=== PATIENT | male | born 1955 | race Caucasian/White ===

== ENCOUNTER 2018-12-01 11:47 | Emergency (ER) | payer BC ==
[2018-12-01] MEDS ORDERED: LIDOCAINE 1% MPF 30 ML VIAL ONE (12:40)
--- NOTE | 2018-12-01 13:01 | RAD REPORT ---
EXAM DESCRIPTION: RAD - Hand Right 3 View - 12/01/2018 12:48 pm CLINICAL HISTORY: Soft tissue wound, table saw injury right thumb COMPARISON: None. FINDINGS: No acute fracture changes are present. A small oval bone density is present at the ventral margin of the thumb IP joint. This is typical appearance for an accessory ossicle. There is a small triangular shaped bone density along the dorsal margin of the thumb IP joint. This is corticated abena g the margins. No defect or donor site in either phalanx. This small bony density is not believed to be related to the acute injury. There is no dislocation or periosteal reaction noted. No foreign bod y identified. Air density is seen in the dorsal soft tissues near the first MCP joint. This is in close proximity t o the joint space. No bone defect seen. IMPRESSION: No acute bone or joint finding identifiable in the right hand. Air density indicating soft tissue wound near the dorsal margin of the first MCP joint. This is in cl ose proximity to the joint and joint capsule disruption cannot be excluded.
--- NOTE | 2018-12-01 13:52 | EDPHYS ---
Physician Documentation [facility] Name: Poli Uribe II Age: 63 yrs Sex: Male : 1955 Arrival Date: 12/01/2018 Time: 11:50 Bed 14 Private MD: Juma Morris ED Physician Devon Aiken HPI: 12/01 14:12 This 63 yrs old Male presents to ER via Ambulatory with complaints of snw Laceration. 14:12 Onset: The symptoms/episode began/occurred suddenly, just prior to arrival. The patient snw has not experienced similar symptoms in the past. It is unknown whether or not the patient has recently seen a physician. Historical: - Allergies: 11:54 No Known Allergies; ch - Home Meds: :54 None [Active]; ch - PMHx: :54 None; ch - PSHx: 11:54 None; ch - Immunization history:: Adult Immunizations up to date, Last tetanus immunization: up to date < 5 years ago. - Social history:: Smoking status: Patient/guardian denies using tobacco, Patient/guardian denies using alcohol, street drugs. - Ebola Screening: : Patient negative for fever greater than or equal to 101.5 degrees Fahrenheit, and additional compatible Ebola Virus Disease symptoms Patient denies exposure to infectious person Patient denies travel to an Ebola-affected area in the 21 days before illness onset No symptoms or risks identified at this time. ROS: 14:10 Constitutional: Negative for fever, chills, and weight loss, Eyes: Negative for injury, snw pain, redness, and discharge, ENT: Negative for injury, pain, and discharge, Neck: Negative for injury, pain, and swelling, Cardiovascular: Negative for chest pain, palpitations, and edema, Respiratory: Negative for shortness of breath, cough, wheezing, and pleuritic chest pain, Abdomen/GI: Negative for abdominal pain, nausea, vomiting, diarrhea, and constipation, Back: Negative for injury and pain, : Negative for injury, bleeding, discharge, and swelling, MS/Extremity: Negative for injury and deformity, Neuro: Negative for headache, weakness, numbness, tingling, and seizure, Psych: Negative for depression, anxiety, suicide ideation, homicidal ideation, and hallucinations. 14:10 Skin: Positive for laceration(s), of the dorsal aspect of proximal phalanx of right thumb. Exam: 14:13 Constitutional: This is a well developed, well nourished patient who is awake, alert, snw and in no acute distress. Head/Face: Normocephalic, atraumatic. Eyes: Pupils equal round and reactive to light, extra-ocular motions intact. Lids and lashes normal. Conjunctiva and sclera are non-icteric and not injected. Cornea within normal limits. Periorbital areas with no swelling, redness, or edema. ENT: Nares patent. No nasal discharge, no septal abnormalities noted. Tympanic membranes are normal and external auditory canals are clear. Oropharynx with no redness, swelling, or masses, exudates, or evidence of obstruction, uvula midline. Mucous membranes moist. Neck: Trachea midline, no thyromegaly or masses palpated, and no cervical lymphadenopathy. Supple, full range of motion without nuchal rigidity, or vertebral point tenderness. No Meningismus. Chest/axilla: Normal chest wall appearance and motion. Nontender with no deformity. No lesions are appreciated. Cardiovascular: Regular rate and rhythm with a normal S1 and S2. No gallops, murmurs, or rubs. Normal PMI, no JVD. No pulse deficits. Respiratory: Lungs have equal breath sounds bilaterally, clear to auscultation and percussion. No rales, rhonchi or wheezes noted. No increased work of breathing, no retractions or nasal flaring. Abdomen/GI: Soft, non-tender, with normal bowel sounds. No distension or tympany. No guarding or rebound. No evidence of tenderness throughout. Back: No spinal tenderness. No costovertebral tenderness. Full range of motion. Neuro: Awake and alert, GCS 15, oriented to person, place, time, and situation. Cranial nerves II-XII grossly intact. Motor strength 5/5 in all extremities. Sensory grossly intact. Cerebellar exam normal. Normal gait. Psych: Awake, alert, with orientation to person, place and time. Behavior, mood, and affect are within normal limits. 14:13 Skin: Appearance: normal except for affected area, injury, laceration(s), the wound is approximately 1 cm(s), with a depth of 1 cm(s), of the dorsal aspect of proximal phalanx of right thumb, area of fascia disruption, no visible tendon injury or disruption of ROM, some muscle tissue exudes from center of laceration with flexion of thumb. Area closed with 1 4-0 chromic suture post anesthesia and copious irrigation.. Vital Signs: 11:54 BP 168 / 89; Pulse 98; Resp 20; Temp 97.9; Pulse Ox 99% on R/A; Weight 77.11 kg; Height ch 5 ft. 11 in. (180.34 cm); Pain 2/10; 12:54 BP 150 / 93; Pulse 66; Resp 18; Pulse Ox 99% on R/A; Pain 0/10; rb1 13:33 BP 152 / 95; Pulse 67; Resp 17; Pulse Ox 100% on R/A; rb1 14:15 BP 150 / 92; Pulse 68; Resp 17; Pulse Ox 100% on R/A; Pain 0/10; rb1 11:54 Body Mass Index 23.71 (77.11 kg, 180.34 cm) ch Laceration: 13:49 Wound Repair of 1cm ( 0.4in ) subcutaneous laceration to dorsal aspect of proximal snw phalanx of right thumb. Irregularly shaped.. Skin/tissue flap noted.. Distal neuro/vascular/tendon intact. Anesthesia: Wound infiltrated with 7 mls of 1% lidocaine. Wound prep: Copious irrigation. Skin closed with 1 4-0 chromic using simple sutures and sterile technique. Dressed with 4x4's, non-adherent dressing. Patient tolerated well. MDM: 12:01 Patient medically screened. snw 14:12 Data reviewed: vital signs, nurses notes. Data interpreted: Pulse oximetry: on room air snw is 100 %. Interpretation: normal. Counseling: I had a detailed discussion with the patient and/or guardian regarding: the historical points, exam findings, and any diagnostic results supporting the discharge/admit diagnosis, the presence of at least one elevated blood pressure reading (>120/80) during this emergency department visit, radiology results, the need for outpatient follow up, to return to the emergency department if symptoms worsen or persist or if there are any questions or concerns that arise at home. Special discussion: I have referred the patient to see his PCP for further evaluation of high blood pressure. Based on the history and exam findings, there is no indication for further emergent testing or inpatient evaluation. I discussed with the patient/guardian the need to see the hand specialist for further evaluation of the symptoms. I discussed with the patient/guardian the need to see the primary care provider for further evaluation of the symptoms. 12/01 12:21 Order name: Hand Right 3 View XRAY; Complete Time: 13:52 snw 12/01 12:21 Order name: Wound Care; Complete Time: 14:04 snw 12/01 12:21 Order name: Suture Tray at Bedside; Complete Time: 13:08 snw 12/01 12:21 Order name: Misc. Order: 2L NS for wound irrigation; Complete Time: 13:08 snw 12/01 13:53 Order name: Thumb Spica Splint; Complete Time: 14:17 snw 12/01 13:53 Order name: Wound dressing; Complete Time: 14:04 snw Administered Medications: 12:50 Drug: Lidocaine (1 %) 1 vials Volume: 20 ml; Route: Infiltration; rb1 Disposition: 12/02 07:20 Co-signature as Attending Physician, Devon Aiken MD I agree with the assessment and kdr plan of care. Disposition: 12/01/18 13:51 Discharged to Home. Impression: Laceration with foreign body of right thumb without damage to nail. - Condition is Stable. - Discharge Instructions: Cast or Splint Care, Adult, Laceration Care, Adult, Sutured Wound Care, Wound Infection. - Prescriptions for Keflex 500 mg Oral Capsule - take 1 capsule by ORAL route every 8 hours for 10 days; 30 capsule. Tylenol- Codeine #3 300-30 mg Oral Tablet - take 2 tablets by ORAL route every 6 hours As needed; 20 tablet. - Work release form, Medication Reconciliation Form, Thank You Letter, Antibiotic Education, Prescription Opioid Use form. - Follow up: Juma Morris MD; When: 2 - 3 days; Reason: Recheck today's complaints, Continuance of care, Re-evaluation by your physician. Follow up: Emergency Department; When: As needed; Reason: Worsening of condition. Signatures: Dispatcher [employer] Nida Salamanca, RN RN Devon Hinds MD MD [facility] Romelia Dong, REGENERATOR OPERATOR-C REGENERATOR OPERATOR-[facility] Gertrude Arriaga, RN RN rb1 Corrections: (The following items were deleted from the chart) 12/01 14:25 13:51 12/01/2018 13:51 Discharged to Home. Impression: Laceration with foreign body of rb1 right thumb without damage to nail. Condition is Stable. Forms are Medication Reconciliation Form, Thank You Letter, Antibiotic Education, Prescription Opioid Use. Follow up: Juma Morris; When: 2 - 3 days; Reason: Recheck today's complaints, Continuance of care, Re-evaluation by your physician. Follow up: Emergency Department; When: As needed; Reason: Worsening of condition. snconchita
--- NOTE | 2018-12-01 13:52 | ER ---
Nurse's Notes [facility] Name: Poli Uribe II Age: 63 yrs Sex: Male : 1955 Arrival Date: 12/01/2018 Time: 11:50 Bed 14 Private MD: Juma Morris Diagnosis: Laceration with foreign body of right thumb without damage to nail Presentation: 12/01 11:53 Presenting complaint: Patient states: nicked my R thumb joint on a table saw approx 1 ch hr ferry [place]. Transition of care: patient was not received from another setting of care. Complicating Factors: There are no complicating factors for this patient. Onset of symptoms was December 01, 2018 at 11:00. Risk Assessment: Do you want to hurt yourself or someone else? Patient reports no desire to harm self or others. Initial Sepsis Screen: Does the patient meet any 2 criteria? No. Patient's initial sepsis screen is negative. Does the patient have a suspected source of infection? No. Patient's initial sepsis screen is negative. Care prior to arrival: None. 11:53 Method Of Arrival: Ambulatory 11:53 Acuity: EVIN 4 Triage Assessment: 11:54 General: Appears in no apparent distress. comfortable, well groomed, Behavior is ch anxious, restless. Pain: Complains of pain in dorsal aspect of proximal phalanx of right thumb and Right first web space Pain currently is 2 out of 10 on a pain scale. Injury Description: Laceration sustained to right hand is jagged, 2.6 to 7.5 cm long, not bleeding, was sustained 30-60 minutes ago. is bleeding moderately. Historical: - Allergies: 11:54 No Known Allergies; - Home Meds: 11:54 None [Active]; ch - PMHx: 11:54 None; ch - PSHx: 11:54 None; - Immunization history:: Adult Immunizations up to date, Last tetanus immunization: up to date < 5 years ago. - Social history:: Smoking status: Patient/guardian denies using tobacco, Patient/guardian denies using alcohol, street drugs. - Ebola Screening: : Patient negative for fever greater than or equal to 101.5 degrees Fahrenheit, and additional compatible Ebola Virus Disease symptoms Patient denies exposure to infectious person Patient denies travel to an Ebola-affected area in the 21 days before illness onset No symptoms or risks identified at this time. Screenin:00 Abuse screen: Denies threats or abuse. Nutritional screening: No deficits noted. rb1 Tuberculosis screening: No symptoms or risk factors identified. Fall Risk None identified. Assessment: 12:00 General: Appears in no apparent distress. comfortable, Behavior is calm, cooperative. rb1 Pain: Complains of pain in right thumb Pain currently is 2 out of 10 on a pain scale. Neuro: Level of Consciousness is awake, alert, obeys commands, Oriented to person, place, time, situation. Cardiovascular: Capillary refill < 3 seconds is brisk in bilateral fingers. Respiratory: Airway is patent Respiratory effort is even, unlabored, Respiratory pattern is regular, symmetrical. GI: No signs and/or symptoms were reported involving the gastrointestinal system. : No signs and/or symptoms were reported regarding the genitourinary system. Derm: Skin is pink, warm \T\ dry. Musculoskeletal: Range of motion: intact in all extremities. Injury Description: Laceration sustained to right thumb is contaminated, was sustained 30-60 minutes ago. is bleeding a small amount. 13:00 Reassessment: Patient appears in no apparent distress at this time. Provider at bedside.rb1 14:00 Reassessment: Patient appears in no apparent distress at this time. Patient and/or rb1 family updated on plan of care and expected duration. Pain level reassessed. Patient is alert, oriented x 3, equal unlabored respirations, skin warm/dry/pink. Patient denies pain at this time. Vital Signs: 11:54 BP 168 / 89; Pulse 98; Resp 20; Temp 97.9; Pulse Ox 99% on R/A; Weight 77.11 kg; Height 5 ft. 11 in. (180.34 cm); Pain 2/10; 12:54 BP 150 / 93; Pulse 66; Resp 18; Pulse Ox 99% on R/A; Pain 0/10; rb1 13:33 BP 152 / 95; Pulse 67; Resp 17; Pulse Ox 100% on R/A; rb1 14:15 BP 150 / 92; Pulse 68; Resp 17; Pulse Ox 100% on R/A; Pain 0/10; rb1 11:54 Body Mass Index 23.71 (77.11 kg, 180.34 cm) ED Course: 11:50 Patient arrived in ED. sb2 11:50 Juma Morris MD is Private Physician. sb2 11:53 Triage completed. ch 11:54 Arm band placed on left wrist. Patient placed in an exam room, on a stretcher. ch 12:01 [facility] snw 12:01 Devon Aiken MD is Attending Physician. snw 12:25 Gertrude Arriaga, RN is Primary Nurse. rb1 12:48 Hand Right 3 View XRAY In Process Unspecified. EDMS 13:51 Juma Morris MD is Referral Physician. snw 14:05 Dressings: non-adherent dressing x 2 right hand and Right first web space and dorsal mh5 aspect of proximal phalanx of right thumb. Wound care: to laceration. 14:06 Patient has correct armband on for positive identification. Pulse ox on. NIBP on. mh5 14:17 right spica Velcro splint. mh5 14:25 No provider procedures requiring assistance completed. Patient did not have IV access rb1 during this emergency room visit. Administered Medications: 12:50 Drug: Lidocaine (1 %) 1 vials Volume: 20 ml; Route: Infiltration; rb1 Outcome: 13:51 Discharge ordered by MD. snw 14:25 Patient left the ED. rb1 14:25 Discharged to home ambulatory. rb1 14:25 Condition: stable 14:25 Discharge instructions given to patient, Instructed on discharge instructions, follow up and referral plans. medication usage, Demonstrated understanding of instructions, follow-up care, medications, Prescriptions given X 2. Signatures: Dispatcher [employer] EDRI Nida Peter, RN RN Romelia Dong FNP-C [facility] Gertrude Arriaga, RN RN rb1 Sandra Roach [facility] Kaykay Zelaya sb2
== END 2018-12-01 14:25 | disposition home or self-care (01) ==
LOC: ER 11:47
PROC: 0JQJ0ZZ Repair Right Hand Subcutaneous Tissue and Fascia, Open Approach (ICD-10-PCS; principal; 2018-12-01)
DX: S61.011A Laceration without foreign body of right thumb without damage to nail, initial encounter (principal); W29.8XXA Contact with other powered hand tools and household machinery, initial encounter; Y93.9 Activity, unspecified; Y92.9 Unspecified place or not applicable
CPT/HCPCS: 99284

== ENCOUNTER 2023-07-15 01:13 | Emergency (ER) | payer OTHER, BC ==
--- OUTSIDE RECORDS SUMMARY | 2023-07-15 01:19 | XMS REPORT | Continuity of Care Document ---
:1955 Author Organization [facility] t Address [address] [place] [address] Care Team Providers Name Role Phone Alexandra JONES, Juma Condon Primary Care Physician Samira JONES, Jens George Attending Clinician Heriberto JONES, Terry Hwang Attending Clinician Eddie Romero WIG MAKER, Barbie Matthews Attending Clinician Rony Attending Clinician Unavailable LUCA OSCAR Attending Clinician Unavailable MD JENS HOGAN Attending Clinician Unavailable Vega Serrano MD Attending Clinician JENS HOGAN Admitting Clinician Unavailable Rony Admitting Clinician Unavailable MD JENS HOGAN Admitting Clinician Unavailable Payers Payer Name Policy Type Policy Number Effective Date Expiration Date S [place] [id number] 2019 [place] 00:[place] [id number] [place] [id number] 2019 [place] 00:00:00 SUPPLEMENT) Problems Condition Condition Condition Status Onset Resolution Last Treating Co mments Source Name Details Category Date Date Treatment Clinician Date Male 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 Social History Social Habit Start Date Stop Date Quantity Comments Source History of tobacco Chews Tobacco [facility] Alcohol intake 2023-07-14 2023-07-14 Lifetime [facility] 00:00:00 00:00:00 non-drinker Hospital (finding) History of Social 2023-07-14 2023-07-[address] function 00:00:00 00:00:00 Hospital Cigarette 2023-06-29 2023-06-29 [facility] pack-[facility] 00:[facility]00 00:00:00 Hospital Tobacco use and 2023-06-29 2023-06-29 Former smokeless [facility] exposure 00:00:00 00:00:00 tobacco user [facility] Tobacco Comment 2023-06-29 2023-06-29 quit 11 years [facility] 00:00:00 00:00:00 ago / smoke less Hospital / smoking tobacco Cigarettes smoked 2023-06-29 2023-06-[address] current (pack per 00:00:00 00:00:00 Hospita l day) - Reported Sex Ass[birth year] At [birth year] [facility] 00:00:00 00:00:00 Hospital Smoking Status Start Date Stop Date Source Ex-smoker 2023-06-29 00:00:00 2023-06-[facility] Medications Ordered Filled Start Stop Current Ordering Indication Dosage Frequency Signature Comments Components Source Medication Medication Date Date Medication? Clinician (SIG) Name Name amLODIPine Yes 10mg QD Take 1 Metho di (NORVASC) 8-16 tablet (10 st 10 mg 18:58: mg total) Hospita tablet 35 by mouth l nightly. losartan Yes 100mg QD Take 2 Method i (COZAAR) 50 8-[address] MG tablet 18:58: (100 mg Hospi ta 35 total) by l mouth every morning. multivitami Yes 1{tbl} QD Take 1 Me thodi n 8-[address] (THERAGRAN) 18:58: mouth Hospi ta tablet 35 daily. l zinc 2022-0 Yes 1{capsu QD Take 1 [facility] sulfate 8-16 le} capsule by st (ZINCATE) 18:58: mouth Hospita 50 mg zinc 35 daily. l (220 mg) capsule cholecalcif 2022-0 Yes 2000U QD Take 2 Met [facility]odi sapp[place], 8-[address] vitamin D3, 18:58: (2,000 Hosp luis alberto 1,000 unit 35 Units l tablet total) by mouth daily. cetirizine 2022-0 Yes 10mg QD Take 1 Metho di (ZyrTEC) 10 -16 tablet (10 st MG tablet 18:58: mg total) Hos mady 35 by mouth l nightly. famotidine 2022-0 Yes 20mg QD Take 1 Metho di (PEPCID) 20 8-16 tablet (20 st MG tablet 18:58: mg total) Hos mady 35 by mouth l every morning. tadalafil 0 Yes 10mg QD Take 10 mg Me thodi (ADCIRCA) [address] 20 mg 18:58: nightly. Hospita tablet 35 l rosuvastati 0 Yes 10mg QD Take 1 Meth katt n (CRESTOR) 8-16 tablet (10 st 10 mg 18:58: mg total) Hospita tablet 35 by mouth l every evening. carvediloL 0 Yes 6.25mg Q.5D Take 1 Met hodi (COREG) 8-[address] 6.25 MG 18:58: (6.25 mg Hospit a tablet 35 total) by l mouth 2 (two) times a day with meals. doxazosin 2022-0 Yes 1mg QD Take 1 Method i (CARDURA) 1 -16 tablet (1 st MG tablet 18:58: mg total) Hos mady 35 by mouth l nightly. docusate 2022-0 2022- Yes 100mg Q.5D Take 1 Metho di sodium 16 -[address] (Colace) 00:00: 04:59 (100 mg Hospi ta 100 MG 00 :00 total) by l capsule mouth 2 (two) times a day for 30 days. acetaminoph 2022-0 2022- Yes [id number] 1{tbl} Q4H Take 1 Methodi en-codeine 8-16 08-[address] (TYLENOL 00:00: 04:59 mouth Hospita WITH 00 :00 every 4 l CODEINE #3) (four) 300-30 mg hours as per tablet needed for moderate pain for up to 5 days .acute pain. sulfamethox 0 2022- Yes 1{tbl} Q.5D Take 1 M ethodi azole-trime 07-[address] thoprim 00:00: 04:59 mouth 2 Hospit a (Bactrim 00 :00 (two) l DS) 800-160 times a mg per day for 5 tablet days. phenazopyri 0 2022- Yes 100mg [id number] Take 1 [facility]i dine 07-[id number] (Pyridium) 00:00: 04:59 3D (100 mg Hos mady 100 MG 00 :00 total) by l tablet mouth 3 (three) times a day as needed for bladder spasms for up to 3 days. MAGNESIUM 0 2022- No Take by Meth katt ORAL 06-[address] 14:23: 00:00 Hospita 46 :00 l ELDERBERRY 0 2022- No Take by Met maritza FRUIT AND 06-[address] FLOWER ORAL 14:22: 00:00 Hospi ta 43 :00 l docosahexae 0 2022- No Take by Mo thodi noic 06-[address] acid/epa 14:22: 00:00 Hospita (FISH OIL 26 :00 l ORAL) methylPREDN 2018-0 Yes Take by Uni vers ISolone 8-24 mouth ity of (MEDROL, 00:00: SEE-INSTRU [place] BOGDAN,) 4 mg 00 CTIONS. Medica l tablets follow Branch package directions methylPREDN 2018-0 Yes Take by Uni vers ISolone 8-24 mouth ity of (MEDROL, 00:00: SEE-INSTRU [place] BOGDAN,) 4 mg 00 CTIONS. Medica l tablets follow Branch package directions methylPREDN 2018-0 Yes Take by Uni vers ISolone 8-24 mouth ity of (MEDROL, 00:00: SEE-INSTRU [place]OGDAN,) 4 mg 00 CTIONS. Medica l tablets follow Branch package directions methylPREDN 2017-0 Yes 84mg Take 21 Uni vers ISolone 9-18 tablets by ity of (MEDROL, 00:00: mouth [place] BOGDAN,) 4 mg 00 SEE-INSTRU Med ical tablets CTIONS. Branch follow package directions methylPREDN 2017-0 Yes 84mg Take 21 Uni vers ISolone 9-18 tablets by ity of (MEDROL, 00:00: mouth [place] BOGDAN,) 4 mg 00 SEE-INSTRU Med ical tablets CTIONS. Branch follow package directions methylPREDN 2017-0 Yes 84mg Take 21 Uni vers ISolone 9-18 tablets by ity of (MEDROL, 00:00: mouth [place] BOGDAN,) 4 mg 00 SEE-INSTRU Med ical tablets CTIONS. Branch follow package directions multivitami multivitami No multivitam [place] n n in [facility] oxybutynin oxybutynin No oxybutynin [place] chloride 5 chloride 5 chloride 5 [facility] mg tablet mg tablet mg tablet Urology TAKE ONE TAKE ONE TAKE ONE (1) (1) (1) TABLET(S) TABLET(S) TABLET(S) BY MOUTH BY MOUTH BY MOUTH ONCE A DAY. ONCE A DAY. ONCE A DAY. Sutab Sutab No Sutab [place] 1.479-0.188 1.479-0.188 1.479-0.18 [facility] -0.225 gram -0.225 gram 8-0.225 Urology tablet USED tablet USED gram DIRECTED DIRECTED tablet BY YOUR BY YOUR USED COLONOSCOPY COLONOSCOPY DIRECTED PACKET PACKET BY YOUR INSTRUCTION INSTRUCTION COLONOSCOP S. S. Y PACKET INSTRUCTIO NS. tadalafil tadalafil No tadalafil [place] 10 mg 10 mg 10 mg [facility] tablet TAKE tablet TAKE tablet Urology ONE (1) ONE (1) TAKE ONE TABLET(S) TABLET(S) (1) BY MOUTH BY MOUTH TABLET(S) ONCE A DAY. ONCE A DAY. BY MOUTH ONCE A DAY. Tri Mix 5 Tri Mix 5 No Tri Mix 5 [place] mL vial. mL vial. mL vial. Met ro Papaverine Papaverine Papaverine Urology 30mg/mL, 30mg/mL, 30mg/mL, Phentolamin Phentolamin Phentolami e Mesylate e Mesylate ne 1mg/mL, 1mg/mL, Mesylate Prostagland Prostagland 1mg/mL, in E1 in E1 Prostaglan 10mcg/mL 10mcg/mL din E1 start @ start @ 10mcg/mL 0.1cc and 0.1cc and start @ can titrate can titrate 0.1cc and up up can titrate up amlodipine amlodipine No amlodipine Ray 10 mg 10 mg 10 mg [facility] tablet TAKE tablet TAKE tablet Urology ONE (1) ONE (1) TAKE ONE TABLET(S) TABLET(S) (1) BY MOUTH AT BY MOUTH AT TABLET(S) BEDTIME. BEDTIME. BY MOUTH AT BEDTIME. amlodipine amlodipine No amlodipine Ray 5 mg tablet 5 mg tablet 5 mg M etro TAKE ONE TAKE ONE tablet Urolo gy (1) (1) TAKE ONE TABLET(S) TABLET(S) (1) BY MOUTH BY MOUTH TABLET(S) TWICE A TWICE A BY MOUTH DAY. DAY. TWICE A DAY. ammonium ammonium No ammonium Terrence ston lactate 12 lactate 12 lactate 12 [facility] % lotion % lotion % lotion Uro logy APPLY TO APPLY TO APPLY TO AFFECTED AFFECTED AFFECTED AREA ONE AREA ONE AREA ONE (1) TO (1) TO (1) TO TWO(2) TWO(2) TWO(2) TIMES DAILY TIMES DAILY TIMES NEEDED. NEEDED. DAILY NEEDED. atorvastati atorvastati No atorvastat [place] n 20 mg n 20 mg in 20 mg [facility] tablet TAKE tablet TAKE tablet Urology ONE (1) ONE (1) TAKE ONE TABLET(S) TABLET(S) (1) BY MOUTH AT BY MOUTH AT TABLET(S) BEDTIME. BEDTIME. BY MOUTH AT BEDTIME. carvedilol carvedilol No carvedilol [place] 6.25 mg 6.25 mg 6.25 mg [facility] tablet TAKE tablet TAKE tablet Urology ONE (1) ONE (1) TAKE ONE TABLET(S) TABLET(S) (1) BY MOUTH BY MOUTH TABLET(S) TWICE A TWICE A BY MOUTH DAY. DAY. TWICE A DAY. doxycycline doxycycline No doxycyclin [place] monohydrate monohydrate e M etro 100 mg 100 mg monohydrat Urolo gy capsule capsule e 100 mg TAKE ONE TAKE ONE capsule (1) (1) TAKE ONE CAPSULE(S) CAPSULE(S) (1) BY MOUTH BY MOUTH CAPSULE(S) TWICE A DAY TWICE A DAY BY MOUTH FOR 7 DAYS FOR 7 DAYS TWICE A BEGINNING BEGINNING DAY FOR 7 ONE DAY ONE DAY DAYS PRIOR TO PRIOR TO BEGINNING SURGERY. SURGERY. ONE DAY PRIOR TO SURGERY. Fish Oil Fish Oil No 2capsul Q1D Fish Oil Ray 1,200 mg 1,200 mg e(s) 1,200 mg Met ro (144 mg-216 (144 mg-216 (144 U rology mg) capsule mg) capsule mg-216 mg) Take 2 Take 2 capsule capsules capsules Take 2 every day every day capsules by oral by oral every day route. route. by oral route. losartan losartan No losartan Terrence ston 100 mg 100 mg 100 mg [facility] tablet TAKE tablet TAKE tablet Urology ONE (1) ONE (1) TAKE ONE TABLET(S) TABLET(S) (1) BY MOUTH BY MOUTH TABLET(S) EVERY EVERY BY MOUTH MORNING. MORNING. EVERY MORNING. losartan 50 losartan 50 No losartan Ray mg tablet mg tablet 50 mg Metr o TAKE ONE TAKE ONE tablet Urolo gy (1) (1) TAKE ONE TABLET(S) TABLET(S) (1) BY MOUTH BY MOUTH TABLET(S) DAILY IN DAILY IN BY MOUTH MORNING. MORNING. DAILY IN MORNING. multivitami multivitami No multivitam [place] n n in [facility] oxybutynin oxybutynin No oxybutynin [place] chloride 5 chloride 5 chloride 5 [facility] mg tablet mg tablet mg tablet Urology TAKE ONE TAKE ONE TAKE ONE (1) (1) (1) TABLET(S) TABLET(S) TABLET(S) BY MOUTH BY MOUTH BY MOUTH ONCE A DAY. ONCE A DAY. ONCE A DAY. Sutab Sutab No Sutab [place] 1.479-0.188 1.479-0.188 1.479-0.18 [facility] -0.225 gram -0.225 gram 8-0.225 Urology tablet USED tablet USED gram DIRECTED DIRECTED tablet BY YOUR BY YOUR USED COLONOSCOPY COLONOSCOPY DIRECTED PACKET PACKET BY YOUR INSTRUCTION INSTRUCTION COLONOSCOP S. S. Y PACKET INSTRUCTIO NS. tadalafil tadalafil No tadalafil [place] 10 mg 10 mg 10 mg [facility] tablet TAKE tablet TAKE tablet Urology ONE (1) ONE (1) TAKE ONE TABLET(S) TABLET(S) (1) BY MOUTH BY MOUTH TABLET(S) ONCE A DAY. ONCE A DAY. BY MOUTH ONCE A DAY. Tri Mix 5 Tri Mix 5 No Tri Mix 5 [place] mL vial. mL vial. mL vial. Met ro Papaverine Papaverine Papaverine Urology 30mg/mL, 30mg/mL, 30mg/mL, Phentolamin Phentolamin Phentolami e Mesylate e Mesylate ne 1mg/mL, 1mg/mL, Mesylate Prostagland Prostagland 1mg/mL, in E1 in E1 Prostaglan 10mcg/mL 10mcg/mL din E1 start @ start @ 10mcg/mL 0.1cc and 0.1cc and start @ can titrate can titrate 0.1cc and up up can titrate up amlodipine amlodipine No amlodipine [place] 10 mg 10 mg 10 mg [facility] tablet TAKE tablet TAKE tablet Urology ONE (1) ONE (1) TAKE ONE TABLET(S) TABLET(S) (1) BY MOUTH AT BY MOUTH AT TABLET(S) BEDTIME. BEDTIME. BY MOUTH AT BEDTIME. amlodipine amlodipine No amlodipine [place] 5 mg tablet 5 mg tablet 5 mg M etro TAKE ONE TAKE ONE tablet Urolo gy (1) (1) TAKE ONE TABLET(S) TABLET(S) (1) BY MOUTH BY MOUTH TABLET(S) TWICE A TWICE A BY MOUTH DAY. DAY. TWICE A DAY. ammonium ammonium No ammonium Terrence ston lactate 12 lactate 12 lactate 12 [facility] % lotion % lotion % lotion Uro logy APPLY TO APPLY TO APPLY TO AFFECTED AFFECTED AFFECTED AREA ONE AREA ONE AREA ONE (1) TO (1) TO (1) TO TWO(2) TWO(2) TWO(2) TIMES DAILY TIMES DAILY TIMES NEEDED. NEEDED. DAILY NEEDED. atorvastati atorvastati No atorvastat [place] n 20 mg n 20 mg in 20 mg [facility] tablet TAKE tablet TAKE tablet Urology ONE (1) ONE (1) TAKE ONE TABLET(S) TABLET(S) (1) BY MOUTH AT BY MOUTH AT TABLET(S) BEDTIME. BEDTIME. BY MOUTH AT BEDTIME. carvedilol carvedilol No carvedilol [place] 6.25 mg 6.25 mg 6.25 mg [facility] tablet TAKE tablet TAKE tablet Urology ONE (1) ONE (1) TAKE ONE TABLET(S) TABLET(S) (1) BY MOUTH BY MOUTH TABLET(S) TWICE A TWICE A BY MOUTH DAY. DAY. TWICE A DAY. doxazosin 1 doxazosin 1 No doxazosin [place] mg tablet mg tablet 1 mg [facility] TAKE ONE TAKE ONE tablet Urolo gy (1) TABLET (1) TABLET TAKE ONE BY MOUTH BY MOUTH (1) TABLET DAILY. DAILY. BY MOUTH DAILY. doxycycline doxycycline No doxycyclin [place] hyclate 100 hyclate 100 e hyclate [facility] mg capsule mg capsule 100 mg U rology TAKE ONE TAKE ONE capsule (1) (1) TAKE ONE CAPSULE(S) CAPSULE(S) (1) BY MOUTH BY MOUTH CAPSULE(S) TWICE A DAY TWICE A DAY BY MOUTH WITH FOOD. WITH FOOD. TWICE A DO NOT LAY DO NOT LAY DAY WITH DOWN UNTIL DOWN UNTIL FOOD. DO TWO HOURS TWO HOURS NOT LAY AFTER AFTER DOWN UNTIL TAKING. TAKING. TWO HOURS AFTER TAKING. doxycycline doxycycline No doxycyclin [place] monohydrate monohydrate e M etro 100 mg 100 mg monohydrat Urolo gy capsule capsule e 100 mg TAKE ONE TAKE ONE capsule (1) (1) TAKE ONE CAPSULE(S) CAPSULE(S) (1) BY MOUTH BY MOUTH CAPSULE(S) TWICE A DAY TWICE A DAY BY MOUTH FOR 7 DAYS FOR 7 DAYS TWICE A BEGINNING BEGINNING DAY FOR 7 ONE DAY ONE DAY DAYS PRIOR TO PRIOR TO BEGINNING SURGERY. SURGERY. ONE DAY PRIOR TO SURGERY. Fish Oil Fish Oil No 2capsul Q1D Fish Oil [place] 1,200 mg 1,200 mg e(s) 1,200 mg Met ro (144 mg-216 (144 mg-216 (144 U rology mg) capsule mg) capsule mg-216 mg) Take 2 Take 2 capsule capsules capsules Take 2 every day every day capsules by oral by oral every day route. route. by oral route. losartan losartan No losartan Terrence ston 100 mg 100 mg 100 mg [facility] tablet TAKE tablet TAKE tablet Urology ONE (1) ONE (1) TAKE ONE TABLET(S) TABLET(S) (1) BY MOUTH BY MOUTH TABLET(S) EVERY EVERY BY MOUTH MORNING. MORNING. EVERY MORNING. losartan 50 losartan 50 No losartan [place] mg tablet mg tablet 50 mg Metr o TAKE ONE TAKE ONE tablet Urolo gy (1) (1) TAKE ONE TABLET(S) TABLET(S) (1) BY MOUTH BY MOUTH TABLET(S) DAILY IN DAILY IN BY MOUTH MORNING. MORNING. DAILY IN MORNING. metronidazo metronidazo No metronidaz [place] le 0.75 % le 0.75 % ole 0.75 % [facility] lotion lotion lotion Urology APPLY THIN APPLY THIN APPLY THIN LAYER TO LAYER TO LAYER TO AFFECTED AFFECTED AFFECTED AREA ON AREA ON AREA ON FACE TWICE FACE TWICE FACE TWICE DAILY. DAILY. DAILY. multivitami multivitami No multivitam [place] n n in [facility] oxybutynin oxybutynin No oxybutynin [place] chloride 5 chloride 5 chloride 5 [facility] mg tablet mg tablet mg tablet Urology TAKE ONE TAKE ONE TAKE ONE (1) (1) (1) TABLET(S) TABLET(S) TABLET(S) BY MOUTH BY MOUTH BY MOUTH ONCE A DAY. ONCE A DAY. ONCE A DAY. prednisone prednisone No prednisone [place] 10 mg 10 mg 10 mg [facility] tablet TAKE tablet TAKE tablet Urology THREE (3) THREE (3) TAKE THREE TABLET(S) TABLET(S) (3) BY MOUTH BY MOUTH TABLET(S) DAILY FOR 3 DAILY FOR 3 BY MOUTH DAYS, THEN DAYS, THEN DAILY FOR TWO (2) TWO (2) 3 DAYS, TABLET(S) TABLET(S) THEN TWO DAILY FOR 3 DAILY FOR 3 (2) DAYS, THEN DAYS, THEN TABLET(S) ONE (1) ONE (1) DAILY FOR TABLET(S) TABLET(S) 3 DAYS, DAILY FOR 3 DAILY FOR 3 THEN ONE DAYS. DAYS. (1) TABLET(S) DAILY FOR 3 DAYS. rosuvastati rosuvastati No rosuvastat [place] n 10 mg n 10 mg in 10 mg [facility] tablet TAKE tablet TAKE tablet Urology 1 TABLET BY 1 TABLET BY TAKE 1 MOUTH DAILY MOUTH DAILY TABLET BY AT BEDTIME AT BEDTIME MOUTH DAILY AT BEDTIME Sutab Sutab No Sutab [place] 1.479-0.188 1.479-0.188 1.479-0.18 [facility] -0.225 gram -0.225 gram 8-0.225 Urology tablet USED tablet USED gram DIRECTED DIRECTED tablet BY YOUR BY YOUR USED COLONOSCOPY COLONOSCOPY DIRECTED PACKET PACKET BY YOUR INSTRUCTION INSTRUCTION COLONOSCOP S. S. Y PACKET INSTRUCTIO NS. tadalafil tadalafil No tadalafil [place] 10 mg 10 mg 10 mg [facility] tablet TAKE tablet TAKE tablet Urology ONE (1) ONE (1) TAKE ONE TABLET(S) TABLET(S) (1) BY MOUTH BY MOUTH TABLET(S) ONCE A DAY. ONCE A DAY. BY MOUTH ONCE A DAY. Tri Mix 5 Tri Mix 5 No Tri Mix 5 [place] mL vial. mL vial. mL vial. Met ro Papaverine Papaverine Papaverine Urology 30mg/mL, 30mg/mL, 30mg/mL, Phentolamin Phentolamin Phentolami e Mesylate e Mesylate ne 1mg/mL, 1mg/mL, Mesylate Prostagland Prostagland 1mg/mL, in E1 in E1 Prostaglan 10mcg/mL 10mcg/mL din E1 start @ start @ 10mcg/mL 0.1cc and 0.1cc and start @ can titrate can titrate 0.1cc and up up can titrate up amlodipine amlodipine No amlodipine [place] 10 mg 10 mg 10 mg [facility] tablet TAKE tablet TAKE tablet Urology ONE (1) ONE (1) TAKE ONE TABLET(S) TABLET(S) (1) BY MOUTH AT BY MOUTH AT TABLET(S) BEDTIME. BEDTIME. BY MOUTH AT BEDTIME. amlodipine amlodipine No amlodipine [place] 5 mg tablet 5 mg tablet 5 mg M etro TAKE ONE TAKE ONE tablet Urolo gy (1) (1) TAKE ONE TABLET(S) TABLET(S) (1) BY MOUTH BY MOUTH TABLET(S) TWICE A TWICE A BY MOUTH DAY. DAY. TWICE A DAY. ammonium ammonium No ammonium Terrence ston lactate 12 lactate 12 lactate 12 [facility] % lotion % lotion % lotion Uro logy APPLY TO APPLY TO APPLY TO AFFECTED AFFECTED AFFECTED AREA ONE AREA ONE AREA ONE (1) TO (1) TO (1) TO TWO(2) TWO(2) TWO(2) TIMES DAILY TIMES DAILY TIMES NEEDED. NEEDED. DAILY NEEDED. atorvastati atorvastati No atorvastat [place] n 20 mg n 20 mg in 20 mg [facility] tablet TAKE tablet TAKE tablet Urology ONE (1) ONE (1) TAKE ONE TABLET(S) TABLET(S) (1) BY MOUTH AT BY MOUTH AT TABLET(S) BEDTIME. BEDTIME. BY MOUTH AT BEDTIME. carvedilol carvedilol No carvedilol [place] 6.25 mg 6.25 mg 6.25 mg [facility] tablet TAKE tablet TAKE tablet Urology ONE (1) ONE (1) TAKE ONE TABLET(S) TABLET(S) (1) BY MOUTH BY MOUTH TABLET(S) TWICE A TWICE A BY MOUTH DAY. DAY. TWICE A DAY. doxazosin 1 doxazosin 1 No doxazosin [place] mg tablet mg tablet 1 mg [facility] TAKE ONE TAKE ONE tablet Urolo gy (1) TABLET (1) TABLET TAKE ONE BY MOUTH BY MOUTH (1) TABLET DAILY. DAILY. BY MOUTH DAILY. doxycycline doxycycline No doxycyclin [place] hyclate 100 hyclate 100 e hyclate [facility] mg capsule mg capsule 100 mg U rology TAKE ONE TAKE ONE capsule (1) (1) TAKE ONE CAPSULE(S) CAPSULE(S) (1) BY MOUTH BY MOUTH CAPSULE(S) TWICE A DAY TWICE A DAY BY MOUTH WITH FOOD. WITH FOOD. TWICE A DO NOT LAY DO NOT LAY DAY WITH DOWN UNTIL DOWN UNTIL FOOD. DO TWO HOURS TWO HOURS NOT LAY AFTER AFTER DOWN UNTIL TAKING. TAKING. TWO HOURS AFTER TAKING. doxycycline doxycycline No doxycyclin [place] monohydrate monohydrate e M etro 100 mg 100 mg monohydrat [facility]rol[facility] gy capsule capsule e 100 mg TAKE ONE TAKE ONE capsule (1) (1) TAKE ONE CAPSULE(S) CAPSULE(S) (1) BY MOUTH BY MOUTH CAPSULE(S) TWICE A DAY TWICE A DAY BY MOUTH FOR 7 DAYS FOR 7 DAYS TWICE A BEGINNING BEGINNING DAY FOR 7 ONE DAY ONE DAY DAYS PRIOR TO PRIOR TO BEGINNING SURGERY. SURGERY. ONE DAY PRIOR TO SURGERY. Fish Oil Fish Oil No 2capsul Q1D Fish Oil [place] 1,200 mg 1,200 mg e(s) 1,200 mg Met ro (144 mg-216 (144 mg-216 (144 U rology mg) capsule mg) capsule mg-216 mg) Take 2 Take 2 capsule capsules capsules Take 2 every day every day capsules by oral by oral every day route. route. by oral route. losartan losartan No losartan Terrence ston 100 mg 100 mg 100 mg [facility] tablet TAKE tablet TAKE tablet Urology ONE (1) ONE (1) TAKE ONE TABLET(S) TABLET(S) (1) BY MOUTH BY MOUTH TABLET(S) EVERY EVERY BY MOUTH MORNING. MORNING. EVERY MORNING. losartan 50 losartan 50 No losartan [place]ya mg tablet mg tablet 50 mg Metr o TAKE ONE TAKE ONE tablet Urolo gy (1) (1) TAKE ONE TABLET(S) TABLET(S) (1) BY MOUTH BY MOUTH TABLET(S) DAILY IN DAILY IN BY MOUTH MORNING. MORNING. DAILY IN MORNING. metronidazo metronidazo No metronidaz [place] le 0.75 % le 0.75 % ole 0.75 % [facility] lotion lotion lotion Urology APPLY THIN APPLY THIN APPLY THIN LAYER TO LAYER TO LAYER TO AFFECTED AFFECTED AFFECTED AREA ON AREA ON AREA ON FACE TWICE FACE TWICE FACE TWICE DAILY. DAILY. DAILY. multivitami multivitami No multivitam [place] n n in [facility] oxybutynin oxybutynin No oxybutynin [place] chloride 5 chloride 5 chloride 5 [facility] mg tablet mg tablet mg tablet Urology TAKE ONE TAKE ONE TAKE ONE (1) (1) (1) TABLET(S) TABLET(S) TABLET(S) BY MOUTH BY MOUTH BY MOUTH ONCE A DAY. ONCE A DAY. ONCE A DAY. prednisone prednisone No prednisone [place] 10 mg 10 mg 10 mg [facility] tablet TAKE tablet TAKE tablet Urology THREE (3) THREE (3) TAKE THREE TABLET(S) TABLET(S) (3) BY MOUTH BY MOUTH TABLET(S) DAILY FOR 3 DAILY FOR 3 BY MOUTH DAYS, THEN DAYS, THEN DAILY FOR TWO (2) TWO (2) 3 DAYS, TABLET(S) TABLET(S) THEN TWO DAILY FOR 3 DAILY FOR 3 (2) DAYS, THEN DAYS, THEN TABLET(S) ONE (1) ONE (1) DAILY FOR TABLET(S) TABLET(S) 3 DAYS, DAILY FOR 3 DAILY FOR 3 THEN ONE DAYS. DAYS. (1) TABLET(S) DAILY FOR 3 DAYS. rosuvastati rosuvastati No rosuvastat [place] n 10 mg n 10 mg in 10 mg [facility] tablet TAKE tablet TAKE tablet Urology 1 TABLET BY 1 TABLET BY TAKE 1 MOUTH DAILY MOUTH DAILY TABLET BY AT BEDTIME AT BEDTIME MOUTH DAILY AT BEDTIME Sutab Sutab No Sutab [place] 1.479-0.188 1.479-0.188 1.479-0.18 [facility] -0.225 gram -0.225 gram 8-0.225 Urology tablet USED tablet USED gram DIRECTED DIRECTED tablet BY YOUR BY YOUR USED COLONOSCOPY COLONOSCOPY DIRECTED PACKET PACKET BY YOUR INSTRUCTION INSTRUCTION COLONOSCOP S. S. Y PACKET INSTRUCTIO NS. tadalafil tadalafil No tadalafil [place] 10 mg 10 mg 10 mg [facility] tablet TAKE tablet TAKE tablet Urology ONE (1) ONE (1) TAKE ONE TABLET(S) TABLET(S) (1) BY MOUTH BY MOUTH TABLET(S) ONCE A DAY. ONCE A DAY. BY MOUTH ONCE A DAY. Tri Mix 5 Tri Mix 5 No Tri Mix 5 [place] mL vial. mL vial. mL vial. Met ro Papaverine Papaverine Papaverine Urology 30mg/mL, 30mg/mL, 30mg/mL, Phentolamin Phentolamin Phentolami e Mesylate e Mesylate ne 1mg/mL, 1mg/mL, Mesylate Prostagland Prostagland 1mg/mL, in E1 in E1 Prostaglan 10mcg/mL 10mcg/mL din E1 start @ start @ 10mcg/mL 0.1cc and 0.1cc and start @ can titrate can titrate 0.1cc and up up can titrate up amlodipine amlodipine No amlodipine [place] 10 mg 10 mg 10 mg [facility] tablet TAKE tablet TAKE tablet Urology ONE (1) ONE (1) TAKE ONE TABLET(S) TABLET(S) (1) BY MOUTH AT BY MOUTH AT TABLET(S) BEDTIME. BEDTIME. BY MOUTH AT BEDTIME. amlodipine amlodipine No amlodipine [place] 5 mg tablet 5 mg tablet 5 mg M etro TAKE ONE TAKE ONE tablet Urolo gy (1) (1) TAKE ONE TABLET(S) TABLET(S) (1) BY MOUTH BY MOUTH TABLET(S) TWICE A TWICE A BY MOUTH DAY. DAY. TWICE A DAY. ammonium ammonium No ammonium Terrence ston lactate 12 lactate 12 lactate 12 [facility] % lotion % lotion % lotion Uro logy APPLY TO APPLY TO APPLY TO AFFECTED AFFECTED AFFECTED AREA ONE AREA ONE AREA ONE (1) TO (1) TO (1) TO TWO(2) TWO(2) TWO(2) TIMES DAILY TIMES DAILY TIMES NEEDED. NEEDED. DAILY NEEDED. atorvastati atorvastati No atorvastat [place] n 20 mg n 20 mg in 20 mg [facility] tablet TAKE tablet TAKE tablet [facility] ONE (1) ONE (1) TAKE ONE TABLET(S) TABLET(S) (1) BY MOUTH AT BY MOUTH AT TABLET(S) BEDTIME. BEDTIME. BY MOUTH AT BEDTIME. carvedilol carvedilol No carvedilol [place] 6.25 mg 6.25 mg 6.25 mg [facility] tablet TAKE tablet TAKE tablet [facility] ONE (1) ONE (1) TAKE ONE TABLET(S) TABLET(S) (1) BY MOUTH BY MOUTH TABLET(S) TWICE A TWICE A BY MOUTH DAY. DAY. TWICE A DAY. doxazosin 1 doxazosin 1 No doxazosin [place] mg tablet mg tablet 1 mg [facility] TAKE ONE TAKE ONE tablet [facility] (1) TABLET (1) TABLET TAKE ONE BY MOUTH BY MOUTH (1) TABLET DAILY. DAILY. BY MOUTH DAILY. doxycycline doxycycline No doxycyclin [place] hyclate 100 hyclate 100 e hyclate [facility] mg capsule mg capsule 100 mg U rology TAKE ONE TAKE ONE capsule (1) (1) TAKE ONE CAPSULE(S) CAPSULE(S) (1) BY MOUTH BY MOUTH CAPSULE(S) TWICE A DAY TWICE A DAY BY MOUTH WITH FOOD. WITH FOOD. TWICE A DO NOT LAY DO NOT LAY DAY WITH DOWN UNTIL DOWN UNTIL FOOD. DO TWO HOURS TWO HOURS NOT LAY AFTER AFTER DOWN UNTIL TAKING. TAKING. TWO HOURS AFTER TAKING. doxycycline doxycycline No doxycyclin [place] monohydrate monohydrate e M etro 100 mg 100 mg monohydrat [facility] capsule capsule e 100 mg TAKE ONE TAKE ONE capsule (1) (1) TAKE ONE CAPSULE(S) CAPSULE(S) (1) BY MOUTH BY MOUTH CAPSULE(S) TWICE A DAY TWICE A DAY BY MOUTH FOR 7 DAYS FOR 7 DAYS TWICE A BEGINNING BEGINNING DAY FOR 7 ONE DAY ONE DAY DAYS PRIOR TO PRIOR TO BEGINNING SURGERY. SURGERY. ONE DAY PRIOR TO SURGERY. Fish Oil Fish Oil No 2capsul Q1D Fish Oil [place] 1,200 mg 1,200 mg e(s) 1,200 mg [facility] (144 mg-216 (144 mg-216 (144 [facility] mg) capsule mg) capsule mg-216 mg) Take 2 Take 2 capsule capsules capsules Take 2 every day every day capsules by oral by oral every day route. route. by oral route. losartan losartan No losartan [facility] 100 mg 100 mg 100 mg [facility] tablet TAKE tablet TAKE tablet [facility] ONE (1) ONE (1) TAKE ONE TABLET(S) TABLET(S) (1) BY MOUTH BY MOUTH TABLET(S) EVERY EVERY BY MOUTH MORNING. MORNING. EVERY MORNING. losartan 50 losartan 50 No losartan [facility] mg tablet mg tablet 50 mg [facility] TAKE ONE TAKE ONE tablet [facility] (1) (1) TAKE ONE TABLET(S) TABLET(S) (1) BY MOUTH BY MOUTH TABLET(S) DAILY IN DAILY IN BY MOUTH MORNING. MORNING. DAILY IN MORNING. metronidazo metronidazo No metronidaz [place] le 0.75 % le 0.75 % ole 0.75 % [facility] lotion lotion lotion [facility] APPLY THIN APPLY THIN APPLY THIN LAYER TO LAYER TO LAYER TO AFFECTED AFFECTED AFFECTED AREA ON AREA ON AREA ON FACE TWICE FACE TWICE FACE TWICE DAILY. DAILY. DAILY. multivitami multivitami No multivitam [place] n n in [facility] oxybutynin oxybutynin No oxybutynin [place] chloride 5 chloride 5 chloride 5 [facility] mg tablet mg tablet mg tablet [facility] TAKE ONE TAKE ONE TAKE ONE (1) (1) (1) TABLET(S) TABLET(S) TABLET(S) BY MOUTH BY MOUTH BY MOUTH ONCE A DAY. ONCE A DAY. ONCE A DAY. prednisone prednisone No prednisone [place] 10 mg 10 mg 10 mg [facility] tablet TAKE tablet TAKE tablet [facility] THREE (3) THREE (3) TAKE THREE TABLET(S) TABLET(S) (3) BY MOUTH BY MOUTH TABLET(S) DAILY FOR 3 DAILY FOR 3 BY MOUTH DAYS, THEN DAYS, THEN DAILY FOR TWO (2) TWO (2) 3 DAYS, TABLET(S) TABLET(S) THEN TWO DAILY FOR 3 DAILY FOR 3 (2) DAYS, THEN DAYS, THEN TABLET(S) ONE (1) ONE (1) DAILY FOR TABLET(S) TABLET(S) 3 DAYS, DAILY FOR 3 DAILY FOR 3 THEN ONE DAYS. DAYS. (1) TABLET(S) DAILY FOR 3 DAYS. rosuvastati rosuvastati No rosuvastat [place] n 10 mg n 10 mg in 10 mg [facility] tablet TAKE tablet TAKE tablet [facility] 1 TABLET BY 1 TABLET BY TAKE 1 MOUTH DAILY MOUTH DAILY TABLET BY AT BEDTIME AT BEDTIME MOUTH DAILY AT BEDTIME Sutab Sutab No Sutab [place] 1.479-0.188 1.479-0.188 1.479-0.18 [facility] -0.225 gram -0.225 gram 8-0.225 [facility] tablet USED tablet USED gram DIRECTED DIRECTED tablet BY YOUR BY YOUR USED COLONOSCOPY COLONOSCOPY DIRECTED PACKET PACKET BY YOUR INSTRUCTION INSTRUCTION COLONOSCOP S. S. Y PACKET INSTRUCTIO NS. tadalafil tadalafil No tadalafil [place] 10 mg 10 mg 10 mg [facility] tablet TAKE tablet TAKE tablet [facility] ONE (1) ONE (1) TAKE ONE TABLET(S) TABLET(S) (1) BY MOUTH BY MOUTH TABLET(S) ONCE A DAY. ONCE A DAY. BY MOUTH ONCE A DAY. Tri Mix 5 Tri Mix 5 No Tri Mix 5 [place] mL vial. mL vial. mL vial. [facility] Papaverine Papaverine Pap[facility] 30mg/mL, 30mg/mL, 30mg/mL, Phentolamin Phentolamin Phentolami e Mesylate e Mesylate ne 1mg/mL, 1mg/mL, Mesylate Prostagland Prostagland 1mg/mL, in E1 in E1 Prostaglan 10mcg/mL 10mcg/mL din E1 start @ start @ 10mcg/mL 0.1cc and 0.1cc and start @ can titrate can titrate 0.1cc and up up can titrate up amlodipine amlodipine No amlodipine [place] 10 mg 10 mg 10 mg [facility] tablet TAKE tablet TAKE tablet [facility] ONE (1) ONE (1) TAKE ONE TABLET(S) TABLET(S) (1) BY MOUTH AT BY MOUTH AT TABLET(S) BEDTIME. BEDTIME. BY MOUTH AT BEDTIME. amlodipine amlodipine No amlodipine [place] 5 mg tablet 5 mg tablet 5 mg [facility] TAKE ONE TAKE ONE tablet [facility] (1) (1) TAKE ONE TABLET(S) TABLET(S) (1) BY MOUTH BY MOUTH TABLET(S) TWICE A TWICE A BY MOUTH DAY. DAY. TWICE A DAY. ammonium ammonium No ammonium [facility] lactate 12 lactate 12 lactate 12 [facility] % lotion % lotion % lotion [facility] APPLY TO APPLY TO APPLY TO AFFECTED AFFECTED AFFECTED AREA ONE AREA ONE AREA ONE (1) TO (1) TO (1) TO TWO(2) TWO(2) TWO(2) TIMES DAILY TIMES DAILY TIMES NEEDED. NEEDED. DAILY NEEDED. atorvastati atorvastati No atorvastat [place] n 20 mg n 20 mg in 20 mg [facility] tablet TAKE tablet TAKE tablet [facility] ONE (1) ONE (1) TAKE ONE TABLET(S) TABLET(S) (1) BY MOUTH AT BY MOUTH AT TABLET(S) BEDTIME. BEDTIME. BY MOUTH AT BEDTIME. carvedilol carvedilol No carvedilol [place] 6.25 mg 6.25 mg 6.25 mg [facility] tablet TAKE tablet TAKE tablet [facility] ONE (1) ONE (1) TAKE ONE TABLET(S) TABLET(S) (1) BY MOUTH BY MOUTH TABLET(S) TWICE A TWICE A BY MOUTH DAY. DAY. TWICE A DAY. doxazosin 1 doxazosin 1 No doxazosin [facility] mg tablet mg tablet 1 mg [facility] TAKE ONE TAKE ONE tablet [facility] (1) TABLET (1) TABLET TAKE ONE BY MOUTH BY MOUTH (1) TABLET DAILY. DAILY. BY MOUTH DAILY. doxycycline doxycycline No doxycyclin [facility] hyclate 100 hyclate 100 e hyclate [facility] mg capsule mg capsule 100 mg [facility] TAKE ONE TAKE ONE capsule (1) (1) TAKE ONE CAPSULE(S) CAPSULE(S) (1) BY MOUTH BY MOUTH CAPSULE(S) TWICE A DAY TWICE A DAY BY MOUTH WITH FOOD. WITH FOOD. TWICE A DO NOT LAY DO NOT LAY DAY WITH DOWN UNTIL DOWN UNTIL FOOD. DO TWO HOURS TWO HOURS NOT LAY AFTER AFTER DOWN UNTIL TAKING. TAKING. TWO HOURS AFTER TAKING. doxycycline doxycycline No doxycyclin [place] monohydrate monohydrate e M etro 100 mg 100 mg monohydrat [facility] capsule capsule e 100 mg TAKE ONE TAKE ONE capsule (1) (1) TAKE ONE CAPSULE(S) CAPSULE(S) (1) BY MOUTH BY MOUTH CAPSULE(S) TWICE A DAY TWICE A DAY BY MOUTH FOR 7 DAYS FOR 7 DAYS TWICE A BEGINNING BEGINNING DAY FOR 7 ONE DAY ONE DAY DAYS PRIOR TO PRIOR TO BEGINNING SURGERY. SURGERY. ONE DAY PRIOR TO SURGERY. Fish Oil Fish Oil No 2capsul Q1D Fish Oil [place] 1,200 mg 1,200 mg e(s) 1,200 mg [facility] (144 mg-216 (144 mg-216 (144 [facility] mg) capsule mg) capsule mg-216 mg) Take 2 Take 2 capsule capsules capsules Take 2 every day every day capsules by oral by oral every day route. route. by oral route. losartan losartan No losartan [facility] 100 mg 100 mg 100 mg [facility] tablet TAKE tablet TAKE tablet [facility] ONE (1) ONE (1) TAKE ONE TABLET(S) TABLET(S) (1) BY MOUTH BY MOUTH TABLET(S) EVERY EVERY BY MOUTH MORNING. MORNING. EVERY MORNING. losartan 50 losartan 50 No losartan [facility] mg tablet mg tablet 50 mg [facility] TAKE ONE TAKE ONE tablet [facility] (1) (1) TAKE ONE TABLET(S) TABLET(S) (1) BY MOUTH BY MOUTH TABLET(S) DAILY IN DAILY IN BY MOUTH MORNING. MORNING. DAILY IN MORNING. metronidazo metronidazo No metronidaz [place] le 0.75 % le 0.75 % ole 0.75 % [facility] lotion lotion lotion [facility] APPLY THIN APPLY THIN APPLY THIN LAYER TO LAYER TO LAYER TO AFFECTED AFFECTED AFFECTED AREA ON AREA ON AREA ON FACE TWICE FACE TWICE FACE TWICE DAILY. DAILY. DAILY. multivitami multivitami No multivitam [place] n n in [facility] oxybutynin oxybutynin No oxybutynin [place] chloride 5 chloride 5 chloride 5 [facility] mg tablet mg tablet mg tablet [facility] TAKE ONE TAKE ONE TAKE ONE (1) (1) (1) TABLET(S) TABLET(S) TABLET(S) BY MOUTH BY MOUTH BY MOUTH ONCE A DAY. ONCE A DAY. ONCE A DAY. prednisone prednisone No prednisone [place] 10 mg 10 mg 10 mg [facility] tablet TAKE tablet TAKE tablet [facility] THREE (3) THREE (3) TAKE THREE TABLET(S) TABLET(S) (3) BY MOUTH BY MOUTH TABLET(S) DAILY FOR 3 DAILY FOR 3 BY MOUTH DAYS, THEN DAYS, THEN DAILY FOR TWO (2) TWO (2) 3 DAYS, TABLET(S) TABLET(S) THEN TWO DAILY FOR 3 DAILY FOR 3 (2) DAYS, THEN DAYS, THEN TABLET(S) ONE (1) ONE (1) DAILY FOR TABLET(S) TABLET(S) 3 DAYS, DAILY FOR 3 DAILY FOR 3 THEN ONE DAYS. DAYS. (1) TABLET(S) DAILY FOR 3 DAYS. rosuvastati rosuvastati No rosuvastat [place] n 10 mg n 10 mg in 10 mg [facility] tablet TAKE tablet TAKE tablet [facility] 1 TABLET BY 1 TABLET BY TAKE 1 MOUTH DAILY MOUTH DAILY TABLET BY AT BEDTIME AT BEDTIME MOUTH DAILY AT BEDTIME Sutab Sutab No Sutab [place] 1.479-0.188 1.479-0.188 1.479-0.18 [facility] -0.225 gram -0.225 gram 8-0.225 [facility] tablet USED tablet USED gram DIRECTED DIRECTED tablet BY YOUR BY YOUR USED COLONOSCOPY COLONOSCOPY DIRECTED PACKET PACKET BY YOUR INSTRUCTION INSTRUCTION COLONOSCOP S. S. Y PACKET INSTRUCTIO DEMETRIUS. tadalafil tadalafil No tadalafil [place] 10 mg 10 mg 10 mg [facility] tablet TAKE tablet TAKE tablet [facility] ONE (1) ONE (1) TAKE ONE TABLET(S) TABLET(S) (1) BY MOUTH BY MOUTH TABLET(S) ONCE A DAY. ONCE A DAY. BY MOUTH ONCE A DAY. Tri Mix 5 Tri Mix 5 No Tri Mix 5 [place] mL vial. mL vial. mL vial. [facility] Papaverine Papaverine [facility] 30mg/mL, 30mg/mL, 30mg/mL, Phentolamin Phentolamin Phentolami e Mesylate e Mesylate ne 1mg/mL, 1mg/mL, Mesylate Prostagland Prostagland 1mg/mL, in E1 in E1 Prostaglan 10mcg/mL 10mcg/mL din E1 start @ start @ 10mcg/mL 0.1cc and 0.1cc and start @ can titrate can titrate 0.1cc and up up can titrate up amlodipine amlodipine No amlodipine [place] 10 mg 10 mg 10 mg [facility] tablet TAKE tablet TAKE tablet [facility] ONE (1) ONE (1) TAKE ONE TABLET(S) TABLET(S) (1) BY MOUTH AT BY MOUTH AT TABLET(S) BEDTIME. BEDTIME. BY MOUTH AT BEDTIME. amlodipine amlodipine No amlodipine [facility] 5 mg tablet 5 mg tablet 5 mg [facility] TAKE ONE TAKE ONE tablet [facility] (1) (1) TAKE ONE TABLET(S) TABLET(S) (1) BY MOUTH BY MOUTH TABLET(S) TWICE A TWICE A BY MOUTH DAY. DAY. TWICE A DAY. ammonium ammonium No ammonium [facility] lactate 12 lactate 12 lactate 12 [facility] % lotion % lotion % lotion [facility] APPLY TO APPLY TO APPLY TO AFFECTED AFFECTED AFFECTED AREA ONE AREA ONE AREA ONE (1) TO (1) TO (1) TO TWO(2) TWO(2) TWO(2) TIMES DAILY TIMES DAILY TIMES NEEDED. NEEDED. DAILY NEEDED. atorvastati atorvastati No atorvastat [place] n 20 mg n 20 mg in 20 mg [facility] tablet TAKE tablet TAKE tablet [facility] ONE (1) ONE (1) TAKE ONE TABLET(S) TABLET(S) (1) BY MOUTH AT BY MOUTH AT TABLET(S) BEDTIME. BEDTIME. BY MOUTH AT BEDTIME. carvedilol carvedilol No carvedilol [place] 6.25 mg 6.25 mg 6.25 mg [facility] tablet TAKE tablet TAKE tablet [facility] ONE (1) ONE (1) TAKE ONE TABLET(S) TABLET(S) (1) BY MOUTH BY MOUTH TABLET(S) TWICE A TWICE A BY MOUTH DAY. DAY. TWICE A DAY. doxazosin 1 doxazosin 1 No doxazosin [facility] mg tablet mg tablet 1 mg [facility] TAKE ONE TAKE ONE tablet [facility] (1) TABLET (1) TABLET TAKE ONE BY MOUTH BY MOUTH (1) TABLET DAILY. DAILY. BY MOUTH DAILY. doxycycline doxycycline No doxycyclin [place] hyclate 100 hyclate 100 e hyclate [facility] mg capsule mg capsule 100 mg [facility] TAKE ONE TAKE ONE capsule (1) (1) TAKE ONE CAPSULE(S) CAPSULE(S) (1) BY MOUTH BY MOUTH CAPSULE(S) TWICE A DAY TWICE A DAY BY MOUTH WITH FOOD. WITH FOOD. TWICE A DO NOT LAY DO NOT LAY DAY WITH DOWN UNTIL DOWN UNTIL FOOD. DO TWO HOURS TWO HOURS NOT LAY AFTER AFTER DOWN UNTIL TAKING. TAKING. TWO HOURS AFTER TAKING. doxycycline doxycycline No doxycyclin [place] monohydrate monohydrate e M etro 100 mg 100 mg monohydrat [facility] capsule capsule e 100 mg TAKE ONE TAKE ONE capsule (1) (1) TAKE ONE CAPSULE(S) CAPSULE(S) (1) BY MOUTH BY MOUTH CAPSULE(S) TWICE A DAY TWICE A DAY BY MOUTH FOR 7 DAYS FOR 7 DAYS TWICE A BEGINNING BEGINNING DAY FOR 7 ONE DAY ONE DAY DAYS PRIOR TO PRIOR TO BEGINNING SURGERY. SURGERY. ONE DAY PRIOR TO SURGERY. Fish Oil Fish Oil No 2capsul Q1D Fish Oil [place] 1,200 mg 1,200 mg e(s) 1,200 mg [facility] (144 mg-216 (144 mg-216 (144 [facility] mg) capsule mg) capsule mg-216 mg) Take 2 Take 2 capsule capsules capsules Take 2 every day every day capsules by oral by oral every day route. route. by oral route. losartan losartan No losartan [facility] 100 mg 100 mg 100 mg [facility] tablet TAKE tablet TAKE tablet [facility] ONE (1) ONE (1) TAKE ONE TABLET(S) TABLET(S) (1) BY MOUTH BY MOUTH TABLET(S) EVERY EVERY BY MOUTH MORNING. MORNING. EVERY MORNING. losartan 50 losartan 50 No losartan [facility] mg tablet mg tablet 50 mg [facility] TAKE ONE TAKE ONE tablet [facility] (1) (1) TAKE ONE TABLET(S) TABLET(S) (1) BY MOUTH BY MOUTH TABLET(S) DAILY IN DAILY IN BY MOUTH MORNING. MORNING. DAILY IN MORNING. metronidazo metronidazo No metronidaz [place] le 0.75 % le 0.75 % ole 0.75 % [facility] lotion lotion lotion [facility] APPLY THIN APPLY THIN APPLY THIN LAYER TO LAYER TO LAYER TO AFFECTED AFFECTED AFFECTED AREA ON AREA ON AREA ON FACE TWICE FACE TWICE FACE TWICE DAILY. DAILY. DAILY. multivitami multivitami No multivitam [place] n n in [facility] oxybutynin oxybutynin No oxybutynin [place] chloride 5 chloride 5 chloride 5 [facility] mg tablet mg tablet mg tablet [facility] TAKE ONE TAKE ONE TAKE ONE (1) (1) (1) TABLET(S) TABLET(S) TABLET(S) BY MOUTH BY MOUTH BY MOUTH ONCE A DAY. ONCE A DAY. ONCE A DAY. prednisone prednisone No prednisone [place] 10 mg 10 mg 10 mg [facility] tablet TAKE tablet TAKE tablet [facility] THREE (3) THREE (3) TAKE THREE TABLET(S) TABLET(S) (3) BY MOUTH BY MOUTH TABLET(S) DAILY FOR 3 DAILY FOR 3 BY MOUTH DAYS, THEN DAYS, THEN DAILY FOR TWO (2) TWO (2) 3 DAYS, TABLET(S) TABLET(S) THEN TWO DAILY FOR 3 DAILY FOR 3 (2) DAYS, THEN DAYS, THEN TABLET(S) ONE (1) ONE (1) DAILY FOR TABLET(S) TABLET(S) 3 DAYS, DAILY FOR 3 DAILY FOR 3 THEN ONE DAYS. DAYS. (1) TABLET(S) DAILY FOR 3 DAYS. rosuvastati rosuvastati No rosuvastat [place] n 10 mg n 10 mg in 10 mg [facility] tablet TAKE tablet TAKE tablet [facility] 1 TABLET BY 1 TABLET BY TAKE 1 MOUTH DAILY MOUTH DAILY TABLET BY AT BEDTIME AT BEDTIME MOUTH DAILY AT BEDTIME Sutab Sutab No Sutab [place] 1.479-0.188 1.479-0.188 1.479-0.18 [facility] -0.225 gram -0.225 gram 8-0.225 [facility] tablet USED tablet USED gram DIRECTED DIRECTED tablet BY YOUR BY YOUR USED COLONOSCOPY COLONOSCOPY DIRECTED PACKET PACKET BY YOUR INSTRUCTION INSTRUCTION COLONOSCOP S. S. Y PACKET INSTRUCTIO DEMETRIUS. tadalafil tadalafil No tadalafil [facility] 10 mg 10 mg 10 mg [facility] tablet TAKE tablet TAKE tablet [facility] ONE (1) ONE (1) TAKE ONE TABLET(S) TABLET(S) (1) BY MOUTH BY MOUTH TABLET(S) ONCE A DAY. ONCE A DAY. BY MOUTH ONCE A DAY. Tri Mix 5 Tri Mix 5 No Tri Mix 5 [place] mL vial. mL vial. mL vial. [facility] Papaverine Papaverine [facility] 30mg/mL, 30mg/mL, 30mg/mL, Phentolamin Phentolamin Phentolami e Mesylate e Mesylate ne 1mg/mL, 1mg/mL, Mesylate Prostagland Prostagland 1mg/mL, in E1 in E1 Prostaglan 10mcg/mL 10mcg/mL din E1 start @ start @ 10mcg/mL 0.1cc and 0.1cc and start @ can titrate can titrate 0.1cc and up up can titrate up amlodipine amlodipine No amlodipine [place] 10 mg 10 mg 10 mg [facility] tablet TAKE tablet TAKE tablet [facility] ONE (1) ONE (1) TAKE ONE TABLET(S) TABLET(S) (1) BY MOUTH AT BY MOUTH AT TABLET(S) BEDTIME. BEDTIME. BY MOUTH AT BEDTIME. amlodipine amlodipine No amlodipine [place] 5 mg tablet 5 mg tablet 5 mg [facility] TAKE ONE TAKE ONE tablet [facility] (1) (1) TAKE ONE TABLET(S) TABLET(S) (1) BY MOUTH BY MOUTH TABLET(S) TWICE A TWICE A BY MOUTH DAY. DAY. TWICE A DAY. ammonium ammonium No ammonium [facility] lactate 12 lactate 12 lactate 12 [facility] % lotion % lotion % lotion [facility] APPLY TO APPLY TO APPLY TO AFFECTED AFFECTED AFFECTED AREA ONE AREA ONE AREA ONE (1) TO (1) TO (1) TO TWO(2) TWO(2) TWO(2) TIMES DAILY TIMES DAILY TIMES NEEDED. NEEDED. DAILY NEEDED. atorvastati atorvastati No atorvastat [place] n 20 mg n 20 mg in 20 mg [facility] tablet TAKE tablet TAKE tablet [facility] ONE (1) ONE (1) TAKE ONE TABLET(S) TABLET(S) (1) BY MOUTH AT BY MOUTH AT TABLET(S) BEDTIME. BEDTIME. BY MOUTH AT BEDTIME. carvedilol carvedilol No carvedilol [place] 6.25 mg 6.25 mg 6.25 mg [facility] tablet TAKE tablet TAKE tablet [facility] ONE (1) ONE (1) TAKE ONE TABLET(S) TABLET(S) (1) BY MOUTH BY MOUTH TABLET(S) TWICE A TWICE A BY MOUTH DAY. DAY. TWICE A DAY. doxazosin 1 doxazosin 1 No doxazosin [place] mg tablet mg tablet 1 mg [facility] TAKE ONE TAKE ONE tablet [facility] (1) TABLET (1) TABLET TAKE ONE BY MOUTH BY MOUTH (1) TABLET DAILY. DAILY. BY MOUTH DAILY. doxycycline doxycycline No doxycyclin [place] hyclate 100 hyclate 100 e hyclate [facility] mg capsule mg capsule 100 mg [facility] TAKE ONE TAKE ONE capsule (1) (1) TAKE ONE CAPSULE(S) CAPSULE(S) (1) BY MOUTH BY MOUTH CAPSULE(S) TWICE A DAY TWICE A DAY BY MOUTH WITH FOOD. WITH FOOD. TWICE A DO NOT LAY DO NOT LAY DAY WITH DOWN UNTIL DOWN UNTIL FOOD. DO TWO HOURS TWO HOURS NOT LAY AFTER AFTER DOWN UNTIL TAKING. TAKING. TWO HOURS AFTER TAKING. doxycycline doxycycline No doxycyclin [place] monohydrate monohydrate e M etro 100 mg 100 mg monohydrat [facility] capsule capsule e 100 mg TAKE ONE TAKE ONE capsule (1) (1) TAKE ONE CAPSULE(S) CAPSULE(S) (1) BY MOUTH BY MOUTH CAPSULE(S) TWICE A DAY TWICE A DAY BY MOUTH FOR 7 DAYS FOR 7 DAYS TWICE A BEGINNING BEGINNING DAY FOR 7 ONE DAY ONE DAY DAYS PRIOR TO PRIOR TO BEGINNING SURGERY. SURGERY. ONE DAY PRIOR TO SURGERY. Fish Oil Fish Oil No 2capsul Q1D Fish Oil [place] 1,200 mg 1,200 mg e(s) 1,200 mg [facility] (144 mg-216 (144 mg-216 (144 [facility] mg) capsule mg) capsule mg-216 mg) Take 2 Take 2 capsule capsules capsules Take 2 every day every day capsules by oral by oral every day route. route. by oral route. amlodipine amlodipine No amlodipine [place] 5 mg tablet 5 mg tablet 5 mg [facility] TAKE ONE TAKE ONE tablet [facility] (1) (1) TAKE ONE TABLET(S) TABLET(S) (1) BY MOUTH BY MOUTH TABLET(S) TWICE A TWICE A BY MOUTH DAY. DAY. TWICE A DAY. losartan losartan No losartan [facility] 100 mg 100 mg 100 mg [facility] tablet TAKE tablet TAKE tablet [facility] ONE (1) ONE (1) TAKE ONE TABLET(S) TABLET(S) (1) BY MOUTH BY MOUTH TABLET(S) EVERY EVERY BY MOUTH MORNING. MORNING. EVERY MORNING. losartan 50 losartan 50 No losartan [facility] mg tablet mg tablet 50 mg [facility] TAKE ONE TAKE ONE tablet [facility] (1) (1) TAKE ONE TABLET(S) TABLET(S) (1) BY MOUTH BY MOUTH TABLET(S) DAILY IN DAILY IN BY MOUTH MORNING. MORNING. DAILY IN MORNING. metronidazo metronidazo No metronidaz [place] le 0.75 % le 0.75 % ole 0.75 % [facility] lotion lotion lotion [facility] APPLY THIN APPLY THIN APPLY THIN LAYER TO LAYER TO LAYER TO AFFECTED AFFECTED AFFECTED AREA ON AREA ON AREA ON FACE TWICE FACE TWICE FACE TWICE DAILY. DAILY. DAILY. multivitami multivitami No multivitam [place] n n in [facility] oxybutynin oxybutynin No oxybutynin [place] chloride 5 chloride 5 chloride 5 [facility] mg tablet mg tablet mg tablet [facility] TAKE ONE TAKE ONE TAKE ONE (1) (1) (1) TABLET(S) TABLET(S) TABLET(S) BY MOUTH BY MOUTH BY MOUTH ONCE A DAY. ONCE A DAY. ONCE A DAY. prednisone prednisone No prednisone [place] 10 mg 10 mg 10 mg [facility] tablet TAKE tablet TAKE tablet [facility] THREE (3) THREE (3) TAKE THREE TABLET(S) TABLET(S) (3) BY MOUTH BY MOUTH TABLET(S) DAILY FOR 3 DAILY FOR 3 BY MOUTH DAYS, THEN DAYS, THEN DAILY FOR TWO (2) TWO (2) 3 DAYS, TABLET(S) TABLET(S) THEN TWO DAILY FOR 3 DAILY FOR 3 (2) DAYS, THEN DAYS, THEN TABLET(S) ONE (1) ONE (1) DAILY FOR TABLET(S) TABLET(S) 3 DAYS, DAILY FOR 3 DAILY FOR 3 THEN ONE DAYS. DAYS. (1) TABLET(S) DAILY FOR 3 DAYS. rosuvastati rosuvastati No rosuvastat [place] n 10 mg n 10 mg in 10 mg [facility] tablet TAKE tablet TAKE tablet [facility] 1 TABLET BY 1 TABLET BY TAKE 1 MOUTH DAILY MOUTH DAILY TABLET BY AT BEDTIME AT BEDTIME MOUTH DAILY AT BEDTIME Sutab Sutab No Sutab [place] 1.479-0.188 1.479-0.188 1.479-0.18 [facility] -0.225 gram -0.225 gram 8-0.225 [facility] tablet USED tablet USED gram DIRECTED DIRECTED tablet BY YOUR BY YOUR USED COLONOSCOPY COLONOSCOPY DIRECTED PACKET PACKET BY YOUR INSTRUCTION INSTRUCTION COLONOSCOP S. S. Y PACKET INSTRUCTIO NS. tadalafil tadalafil No tadalafil [place] 10 mg 10 mg 10 mg [facility] tablet TAKE tablet TAKE tablet [facility] ONE (1) ONE (1) TAKE ONE TABLET(S) TABLET(S) (1) BY MOUTH BY MOUTH TABLET(S) ONCE A DAY. ONCE A DAY. BY MOUTH ONCE A DAY. Tri Mix 5 Tri Mix 5 No Tri Mix 5 [place] mL vial. mL vial. mL vial. Met ro Papaverine Papaverine [facility] 30mg/mL, 30mg/mL, 30mg/mL, Phentolamin Phentolamin Phentolami e Mesylate e Mesylate ne 1mg/mL, 1mg/mL, Mesylate Prostagland Prostagland 1mg/mL, in E1 in E1 Prostaglan 10mcg/mL 10mcg/mL din E1 start @ start @ 10mcg/mL 0.1cc and 0.1cc and start @ can titrate can titrate 0.1cc and up up can titrate up ammonium ammonium No ammonium [facility] st[facility] lactate 12 lactate 12 lactate 12 [facility] % lotion % lotion % lotion [facility] APPLY TO APPLY TO APPLY TO AFFECTED AFFECTED AFFECTED AREA ONE AREA ONE AREA ONE (1) TO (1) TO (1) TO TWO(2) TWO(2) TWO(2) TIMES DAILY TIMES DAILY TIMES NEEDED. NEEDED. DAILY NEEDED. atorvastati atorvastati No atorvastat [place] n 20 mg n 20 mg in 20 mg [facility] tablet TAKE tablet TAKE tablet [facility] ONE (1) ONE (1) TAKE ONE TABLET(S) TABLET(S) (1) BY MOUTH AT BY MOUTH AT TABLET(S) BEDTIME. BEDTIME. BY MOUTH AT BEDTIME. doxycycline doxycycline No doxycyclin [facility] monohydrate monohydrate e M etro 100 mg 100 mg monohydrat [facility] capsule capsule e 100 mg TAKE ONE TAKE ONE capsule (1) (1) TAKE ONE CAPSULE(S) CAPSULE(S) (1) BY MOUTH BY MOUTH CAPSULE(S) TWICE A DAY TWICE A DAY BY MOUTH FOR 7 DAYS FOR 7 DAYS TWICE A BEGINNING BEGINNING DAY FOR 7 ONE DAY ONE DAY DAYS PRIOR TO PRIOR TO BEGINNING SURGERY. SURGERY. ONE DAY PRIOR TO SURGERY. Fish Oil Fish Oil No 2capsul Q1D Fish Oil [facility] 1,200 mg 1,200 mg e(s) 1,200 mg [facility] (144 mg-216 (144 mg-216 (144 [facility] ro[facility]y mg) capsule mg) capsule mg-216 mg) Take 2 Take 2 capsule capsules capsules Take 2 every day every day capsules by oral by oral every day route. route. by oral route. losartan 50 losartan 50 No losartan [facility] mg tablet mg tablet 50 mg [facility] TAKE ONE TAKE ONE tablet [facility] (1) (1) TAKE ONE TABLET(S) TABLET(S) (1) BY MOUTH BY MOUTH TABLET(S) EVERY EVERY BY MOUTH MORNING. MORNING. EVERY MORNING. multivitami multivitami No multivitam [place] n n in [facility] tadalafil 5 tadalafil 5 No tadalafil [facility] mg tablet mg tablet 5 mg [facility] TAKE ONE TAKE ONE tablet [facility] gy (1) (1) TAKE ONE TABLET(S) TABLET(S) (1) BY MOUTH BY MOUTH TABLET(S) EVERY DAY. EVERY DAY. BY MOUTH EVERY DAY. amlodipine amlodipine No amlodipine [place] 5 mg tablet 5 mg tablet 5 mg M etro TAKE ONE TAKE ONE tablet [facility] (1) (1) TAKE ONE TABLET(S) TABLET(S) (1) BY MOUTH BY MOUTH TABLET(S) TWICE A TWICE A BY MOUTH DAY. DAY. TWICE A DAY. ammonium ammonium No ammonium [place] ston lactate 12 lactate 12 lactate 12 [facility] % lotion % lotion % lotion [facility] APPLY TO APPLY TO APPLY TO AFFECTED AFFECTED AFFECTED AREA ONE AREA ONE AREA ONE (1) TO (1) TO (1) TO TWO(2) TWO(2) TWO(2) TIMES DAILY TIMES DAILY TIMES NEEDED. NEEDED. DAILY NEEDED. atorvastati atorvastati No atorvastat [place] n 20 mg n 20 mg in 20 mg [facility] tablet TAKE tablet TAKE tablet [facility] ONE (1) ONE (1) TAKE ONE TABLET(S) TABLET(S) (1) BY MOUTH AT BY MOUTH AT TABLET(S) BEDTIME. BEDTIME. BY MOUTH AT BEDTIME. doxycycline doxycycline No doxycyclin [place] monohydrate monohydrate e M etro 100 mg 100 mg monohydrat [facility] capsule capsule e 100 mg TAKE ONE TAKE ONE capsule (1) (1) TAKE ONE CAPSULE(S) CAPSULE(S) (1) BY MOUTH BY MOUTH CAPSULE(S) TWICE A DAY TWICE A DAY BY MOUTH FOR 7 DAYS FOR 7 DAYS TWICE A BEGINNING BEGINNING DAY FOR 7 ONE DAY ONE DAY DAYS PRIOR TO PRIOR TO BEGINNING SURGERY. SURGERY. ONE DAY PRIOR TO SURGERY. Fish Oil Fish Oil No 2capsul Q1D Fish Oil [place] 1,200 mg 1,200 mg e(s) 1,200 mg Met ro (144 mg-216 (144 mg-216 (144 U rology mg) capsule mg) capsule mg-216 mg) Take 2 Take 2 capsule capsules capsules Take 2 every day every day capsules by oral by oral every day route. route. by oral route. losartan 50 losartan 50 No losartan [place] mg tablet mg tablet 50 mg [facility] o TAKE ONE TAKE ONE tablet [facility] (1) (1) TAKE ONE TABLET(S) TABLET(S) (1) BY MOUTH BY MOUTH TABLET(S) EVERY EVERY BY MOUTH MORNING. MORNING. EVERY MORNING. multivitami multivitami No multivitam [place] n n in [facility] oxybutynin oxybutynin No 1 Q1D oxybutynin [place] chloride 5 chloride 5 chloride 5 [facility] mg tablet mg tablet mg tablet Urology Take 1 Take 1 Take 1 tablet tablet tablet every day every day every day by oral by oral by oral route. route. route. tadalafil tadalafil No tadalafil [place] 10 mg 10 mg 10 mg [facility] tablet TAKE tablet TAKE tablet Urology ONE (1) ONE (1) TAKE ONE TABLET(S) TABLET(S) (1) BY MOUTH BY MOUTH TABLET(S) ONCE A DAY. ONCE A DAY. BY MOUTH ONCE A DAY. Tri Mix 5 Tri Mix 5 No Tri Mix 5 [place] mL vial. mL vial. mL vial. Met ro Papaverine Papaverine Papaverine Urology 30mg/mL, 30mg/mL, 30mg/mL, Phentolamin Phentolamin Phentolami e Mesylate e Mesylate ne 1mg/mL, 1mg/mL, Mesylate Prostagland Prostagland 1mg/mL, in E1 in E1 Prostaglan 10mcg/mL 10mcg/mL din E1 start @ start @ 10mcg/mL 0.1cc and 0.1cc and start @ can titrate can titrate 0.1cc and up up can titrate up amlodipine amlodipine No amlodipine Ray 5 mg tablet 5 mg tablet 5 mg M etro TAKE ONE TAKE ONE tablet Urolo gy (1) (1) TAKE ONE TABLET(S) TABLET(S) (1) BY MOUTH BY MOUTH TABLET(S) TWICE A TWICE A BY MOUTH DAY. DAY. TWICE A DAY. ammonium ammonium No ammonium Terrence ston lactate 12 lactate 12 lactate 12 [facility] % lotion % lotion % lotion Uro logy APPLY TO APPLY TO APPLY TO AFFECTED AFFECTED AFFECTED AREA ONE AREA ONE AREA ONE (1) TO (1) TO (1) TO TWO(2) TWO(2) TWO(2) TIMES DAILY TIMES DAILY TIMES NEEDED. NEEDED. DAILY NEEDED. atorvastati atorvastati No atorvastat Ray n 20 mg n 20 mg in 20 mg [facility] tablet TAKE tablet TAKE tablet Urology ONE (1) ONE (1) TAKE ONE TABLET(S) TABLET(S) (1) BY MOUTH AT BY MOUTH AT TABLET(S) BEDTIME. BEDTIME. BY MOUTH AT BEDTIME. doxycycline doxycycline No doxycyclin Ray monohydrate monohydrate e M etro 100 mg 100 mg monohydrat Urolo gy capsule capsule e 100 mg TAKE ONE TAKE ONE capsule (1) (1) TAKE ONE CAPSULE(S) CAPSULE(S) (1) BY MOUTH BY MOUTH CAPSULE(S) TWICE A DAY TWICE A DAY BY MOUTH FOR 7 DAYS FOR 7 DAYS TWICE A BEGINNING BEGINNING DAY FOR 7 ONE DAY ONE DAY DAYS PRIOR TO PRIOR TO BEGINNING SURGERY. SURGERY. ONE DAY PRIOR TO SURGERY. Fish Oil Fish Oil No 2capsul Q1D Fish Oil Ray 1,200 mg 1,200 mg e(s) 1,200 mg Met ro (144 mg-216 (144 mg-216 (144 U rology mg) capsule mg) capsule mg-216 mg) Take 2 Take 2 capsule capsules capsules Take 2 every day every day capsules by oral by oral every day route. route. by oral route. losartan 50 losartan 50 No losartan Ray mg tablet mg tablet 50 mg Metr o TAKE ONE TAKE ONE tablet Urolo gy (1) (1) TAKE ONE TABLET(S) TABLET(S) (1) BY MOUTH BY MOUTH TABLET(S) EVERY EVERY BY MOUTH MORNING. MORNING. EVERY MORNING. multivitami multivitami No multivitam [place] n n in [facility] oxybutynin oxybutynin No oxybutynin [place] chloride 5 chloride 5 chloride 5 [facility] mg tablet mg tablet mg tablet Urology TAKE ONE TAKE ONE TAKE ONE (1) (1) (1) TABLET(S) TABLET(S) TABLET(S) BY MOUTH BY MOUTH BY MOUTH ONCE A DAY. ONCE A DAY. ONCE A DAY. Sutab Sutab No Sutab [place] 1.479-0.188 1.479-0.188 1.479-0.18 [facility] -0.225 gram -0.225 gram 8-0.225 Urology tablet USED tablet USED gram DIRECTED DIRECTED tablet BY YOUR BY YOUR USED COLONOSCOPY COLONOSCOPY DIRECTED PACKET PACKET BY YOUR INSTRUCTION INSTRUCTION COLONOSCOP S. S. Y PACKET INSTRUCTIO NS. tadalafil tadalafil No tadalafil [place] 10 mg 10 mg 10 mg [facility] tablet TAKE tablet TAKE tablet Urology ONE (1) ONE (1) TAKE ONE TABLET(S) TABLET(S) (1) BY MOUTH BY MOUTH TABLET(S) ONCE A DAY. ONCE A DAY. BY MOUTH ONCE A DAY. Tri Mix 5 Tri Mix 5 No Tri Mix 5 [place] mL vial. mL vial. mL vial. Met ro Papaverine Papaverine Papaverine Urology 30mg/mL, 30mg/mL, 30mg/mL, Phentolamin Phentolamin Phentolami e Mesylate e Mesylate ne 1mg/mL, 1mg/mL, Mesylate Prostagland Prostagland 1mg/mL, in E1 in E1 Prostaglan 10mcg/mL 10mcg/mL din E1 start @ start @ 10mcg/mL 0.1cc and 0.1cc and start @ can titrate can titrate 0.1cc and up up can titrate up amlodipine amlodipine No amlodipine Ray 5 mg tablet 5 mg tablet 5 mg M etro TAKE ONE TAKE ONE tablet Urolo gy (1) (1) TAKE ONE TABLET(S) TABLET(S) (1) BY MOUTH BY MOUTH TABLET(S) TWICE A TWICE A BY MOUTH DAY. DAY. TWICE A DAY. ammonium ammonium No ammonium Terrence ston lactate 12 lactate 12 lactate 12 [facility] % lotion % lotion % lotion Uro logy APPLY TO APPLY TO APPLY TO AFFECTED AFFECTED AFFECTED AREA ONE AREA ONE AREA ONE (1) TO (1) TO (1) TO TWO(2) TWO(2) TWO(2) TIMES DAILY TIMES DAILY TIMES NEEDED. NEEDED. DAILY NEEDED. atorvastati atorvastati No atorvastat Ray n 20 mg n 20 mg in 20 mg [facility] tablet TAKE tablet TAKE tablet Urology ONE (1) ONE (1) TAKE ONE TABLET(S) TABLET(S) (1) BY MOUTH AT BY MOUTH AT TABLET(S) BEDTIME. BEDTIME. BY MOUTH AT BEDTIME. doxycycline doxycycline No doxycyclin [place] monohydrate monohydrate e M etro 100 mg 100 mg monohydrat Urolo gy capsule capsule e 100 mg TAKE ONE TAKE ONE capsule (1) (1) TAKE ONE CAPSULE(S) CAPSULE(S) (1) BY MOUTH BY MOUTH CAPSULE(S) TWICE A DAY TWICE A DAY BY MOUTH FOR 7 DAYS FOR 7 DAYS TWICE A BEGINNING BEGINNING DAY FOR 7 ONE DAY ONE DAY DAYS PRIOR TO PRIOR TO BEGINNING SURGERY. SURGERY. ONE DAY PRIOR TO SURGERY. Fish Oil Fish Oil No 2capsul Q1D Fish Oil [place] 1,200 mg 1,200 mg e(s) 1,200 mg Met ro (144 mg-216 (144 mg-216 (144 U rology mg) capsule mg) capsule mg-216 mg) Take 2 Take 2 capsule capsules capsules Take 2 every day every day capsules by oral by oral every day route. route. by oral route. losartan 50 losartan 50 No losartan [place] mg tablet mg tablet 50 mg Metr o TAKE ONE TAKE ONE tablet Urolo gy (1) (1) TAKE ONE TABLET(S) TABLET(S) (1) BY MOUTH BY MOUTH TABLET(S) EVERY EVERY BY MOUTH MORNING. MORNING. EVERY MORNING. Immunizations Ordered Immunization Filled Immunization Date Status Commen ts Source Name Name Med fusion COVID-19 MRNA 2021-01-25 Completed [facility] VACCINATION 00:00:00 [facility] PFIZER COVID-19 MRNA 2021-01-04 Completed [facility] VACCINATION 00:00:00 Hospital Vital Signs Vital Name Observation Time Observation Value Comments Source Height 2023-03-29 00:00:00 71 [in_i] [place] [facility] BMI (Body Mass 2023-03-29 00:00:00 24.3 kg/m2 [place] [facility] Index) [facility]rology Body Weight 2023-03-29 00:00:00 174 [facility] Height 2022-10-19 00:00:00 71 [in_i] [facility] BMI (Body Mass 2022-10-19 00:00:00 24.3 kg/m2 [place] [facility] Index) Urology Body Weight 2022-10-19 00:00:00 174 [lb_av] [facility] Height 2022-04-16 00:00:00 71 [in_i] [facility] BMI (Body Mass 2022-04-16 00:00:00 24.3 kg/m2 [place] [facility] Index) Urology Body Weight 2022-04-16 00:00:00 174 [lb_av] [facility] BP Diastolic 2021-10-20 00:00:00 71 mm[Hg] [facility] Height 2021-10-20 00:00:00 71 [in_i] [facility] BMI (Body Mass 2021-10-20 00:00:00 24.3 kg/m2 [place] [facility] Index) Urology BP Systolic 2021-10-20 00:00:00 135 mm[Hg] [facility] Body Weight 2021-10-20 00:00:00 174 [lb_av] [facility] BP Diastolic 2021-09-03 00:00:00 71 mm[Hg] [facility] Height 2021-09-03 00:00:00 71 [in_i] [facility] BMI (Body Mass 2021-09-03 00:00:00 24.3 kg/m2 [place] [facility] Index) Urology BP Systolic 2021-09-03 00:00:00 135 mm[Hg] [facility] Body Weight 2021-09-03 00:00:00 174 [lb_av] [facility] BP Diastolic 2021-06-12 00:00:00 71 mm[Hg] [facility] Height 2021-06-12 00:00:00 71 [in_i] [facility] BMI (Body Mass 2021-06-12 00:00:00 24.3 kg/m2 [place] [facility] Index) Urology BP Systolic 2021-06-12 00:00:00 135 mm[Hg] [facility] Body Weight 2021-06-12 00:00:00 174 [lb_av] [facility] Height 2021-03-27 00:00:00 71 [in_i] [facility] BMI (Body Mass 2021-03-27 00:00:00 24.3 kg/m2 [place] [facility] Index) Urology Body Weight 2021-03-27 00:00:00 174 [lb_av] [facility] Heart rate 2019-08-18 16:15:00 70 /min [facility] Respiratory rate 2019-08-18 16:15:00 18 /min [facility] height 2019-08-18 16:15:00 180.3 cm [facility] Body weight 2019-08-18 16:15:00 77.111 kg [facility] BMI 2019-08-18 16:15:00 23.71 kg/m2 [facility] Systolic blood 2019-08-18 16:15:00 138 mm[Hg] [facility] Diastolic blood 2019-08-18 16:15:00 75 [facility]Hg[facility] 2023-07-14 16:52:05 140 mm[Hg] Method ist [facility] pressure Diastolic blood 2023-07-14 16:52:05 63 mm[Hg] [facility] pressure Heart rate 2023-07-14 16:52:05 70 /[facility] temperature 2023-07-14 16:52:05 37.17 Mayuri [facility] Respiratory rate 2023-07-14 16:52:05 18 /min [facility] Oxygen saturation in 2023-07-14 16:52:05 98 /min [facility] Arterial blood by Pulse oximetry Body height 2023-07-13 10:14:00 180.3 cm [facility] Body weight 2023-07-13 10:14:00 82.781 kg [facility] BMI 2023-07-13 10:14:00 25.45 kg/m2 [facility] Procedures Procedure Date / Time Performing Clinician Source Performed [place] AN ELECTIVE 2023-07-13 12:31:00 Terry Louis [facility] SUPRAGLOTTIC AIRWAY PLACEMENT, SLING, 2023-07-13 12:24:00 [facility] USING POLYPROPYLENE MESH URINE CULTURE 2023-06-29 19:45:00 [facility] URINALYSIS SCREEN AND 2023-06-29 19:45:00 [facility] MICROSCOPY, WITH REFLEX TO CULTURE CBC WITH PLATELET AND 2023-06-29 19:15:00 [facility] DIFFERENTIAL COMPREHENSIVE METABOLIC 2023-06-29 19:15:00 [facility] PANEL HEMOGLOBIN A1C 2023-06-29 19:15:00 [facility] ESTIMATED GFR 2023-06-29 19:15:00 [facility] Robot Assisted 2020-11-07 00:00:00 Cory drake Laparoscopic Radical Urology Prostatectomy Prostatectomy with 2020-11-07 00:00:00 Cory branham Bilateral Pelvic Lymph Urology Node Dissection, Robot Assisted Laparoscopic (Surg) XR FOOT <3 VW LEFT 2019-08-18 16:22:20 Vega Serrano [facility] Diagnostic Colonoscopy 2017-11-29 00:00:00 Isaias jean-baptiste [facility] Urology Plan of Care Planned Activity Planned Date Details Comments Source Future Scheduled Test 2023-07-14 [facility] 01:01:13 malignant neoplasm of colon (procedure) [code = 521859321] Future Scheduled Test 2023-07-14 [facility] 01:01:13 malignant neoplasm of colon (procedure) [code = 711992828] Future Scheduled Test 2023-07-14 Screening for [facility] 01:01:13 malignant neoplasm of colon (procedure) [code = 619594816] Future Scheduled Test 2023-07-14 Hepatitis C screening [facility] 01:01:13 (procedure) [code = 225758557] Future Scheduled Test 2023-07-14 SHINGLES VACCINES (1 [facility] 01:01:13 of 2) [code = SHINGLES VACCINES (1 of 2)] Future Scheduled Test 2023-07-14 65+ PNEUMOCOCCAL [facility] 01:01:13 VACCINE (1 - PCV) [code = 65+ PNEUMOCOCCAL VACCINE (1 - PCV)] Future Scheduled Test 2023-07-14 COVID-19 VACCINE (3 - [facility] 01:01:13 Pfizer series) [code = COVID-19 VACCINE (3 - Pfizer series)] Future Scheduled Test 2023-07-14 INFLUENZA VACCINE [facility] 01:01:13 [code = INFLUENZA VACCINE] Future Scheduled Test 2023-07-14 Screening for [facility] 01:01:13 malignant neoplasm of colon (procedure) [code = 379592986] Future Scheduled Test 2023-07-14 Screening for [facility] 01:01:13 malignant neoplasm of colon (procedure) [code = 574127109] Diagnostic Test 2023-03-29 testosterone, total, [place] [facility] Pending 00:00:00 serum [code = Urology testosterone, total, serum] Diagnostic Test 2023-03-29 PSA, serum or plasma [place] [facility] Pending 00:00:00 [code = PSA, serum or Urolog y plasma] Future Appointment 2023-09-29 Jens Hogan, [address] 00:00:[address]; , [place] [address] Encounters Start End Encounter Admission Attending Care Care Encounter Source Date/Time Date/Time Type Type Clinicians Facility Department ID 2023-07-13 2023-07-14 [facility] Samira 1.2.840.1 [id number] Methodi 04:59:00 18:24:00 Encounter Jens George [id number] s t 3.430.2.7 Hospit a .3.496300 l .8 2023-07-13 2023-07-14 Outpatient SAMIRA, [facility] [id number] [place] 00:00:00 00:00:00 JENS [address] 2023-07-13 2023-07-13 Anesthesia Terry Louis 1.2.840.1 [id number] Methodi 07:24:00 09:09:00 Event Barbie Galan 19093.1.[address] 3.430.2.7 Hospit a .3.081844 l .8 2023-07-13 2023-07-13 Surgery Samira, 1.2.840.1 [id number] Methodi 07:15:00 09:00:[address] Jens George [address].1.[address] 3.430.2.7 Hospit a .3.377281 l .8 2023-06-29 2023-06-29 Pre-Admiss Jens Hogan 1.2.840.1 [id number] Methodi 13:30:00 14:30:00 ion Barbie Galan 16492.1.[address] Testing 3.430.2.7 Hospit a .3.797826 l .8 2023-06-29 2023-06-29 Outpatient SAMIRA, [facility] [id number] [place] 00:00:00 00:00:00 JENS [address] 2023-03-29 2023-03-29 Jens [facility] [place] - [id number] Charleen kern 00:00:00 00:00:00 Deejay Diaz y : [address] De Jesus [facility] [address], [place] [address] , Ph. 2023-03-25 2023-03-25 Outpatient Goldfarb_D [facility] [id number] [place] 00:00:00 00:00:00 23234 Deejay Urology 2023-03-25 2023-03-25 Outpatient Goldfarb_D [facility] [id number] [place] 00:00:00 00:00:00 95616 [facility] 2023-03-25 2023-03-25 Outpatient Goldfarb_D [facility] [id number] [id number] [place] 00:00:00 00:00:00 [id number] [facility] 2023-03-25 2023-03-25 Outpatient Goldfarb_D [facility] [id number] [id number] [place] 00:00:00 00:00:00 [id number] [facility] 2023-02-27 2023-02-27 Outpatient Goldfarb_D [facility]U [facility]U [id number] [id number] [place] 00:00:00 00:00:00 [id number] [facility] 2023-01-05 2023-01-05 Rudy [facility] [place] [id number] [facility] 00:00:00 Baltazar Dorman MD: [facility] [address] [place] [address] , Ph. 2022-12-29 2022-12-29 Rudy [facility] [place] [id number] [facility] 00:00:00 00:00:00 Baltazar Dorman MD: [facility] [address] [facility], [place] [address] , Ph. 2022-12-22 2022-12-22 Rudy [facility] [place] [id number] H [facility] 00:00:00 00:00:00 Baltazar Dorman MD: [facility] [address] [facility], [place] [address] , Ph. 2022-12-15 2022-12-15 Outpatient Goldfarb_D [facility] U [id number] [id number] [place] 00:00:00 00:00:00 [id number] [facility] 2022-12-15 2022-12-15 Outpatient Goldfarb_D [facility]U [facility]U [id number] [id number] [place] 00:00:00 00:00:00 [id number] [facility] 2022-12-15 2022-12-15 Outpatient Goldfarb_D [facility]U [facility]U [id number] [id number] [place] 00:00:00 00:00:00 [id number] [facility] 2022-12-15 2022-12-15 Outpatient Goldfarb_D [facility]U [facility]U [id number] [id number] [place] 00:00:00 00:00:00 [id number] [facility] 2022-12-15 2022-12-15 Outpatient Goldfarb_D [facility]U [id number] 79-202 [place] 00:00:00 00:00:00 [id number] [facility] 2022-12-15 2022-12-15 Outpatient Goldfarb_D [facility]U [facility]U [id number] [id number] [place] 00:00:00 00:00:00 [id number] [facility] 2022-12-15 2022-12-15 Outpatient Goldfarb_D [facility]U [id number] [id number] [place] 00:00:00 00:00:00 [id number] [facility] 2022-12-15 2022-12-15 Outpatient Goldfarb_D [facility] U [id number] 79-202 [place] 00:00:00 00:00:00 [id number] [facility] 2022-12-15 2022-12-15 Outpatient Goldfarb_D [facility] U [id number] 79-202 [place] 00:00:00 00:00:00 [id number] [facility] 2022-12-15 2022-12-15 Rudy [facility] [place] - [id number] H erlin 00:00:00 00:00:00 Baltazar Dorman MD: ro Urolo gy [address]UNE [facility], [place] [address] , Ph. 2022-12-13 2022-12-13 Outpatient Goldfarb_D [facility] U [id number] [id number] [place] 00:00:00 00:00:00 [id number] [facility] 2022-10-19 2022-10-19 Outpatient Goldfarb_D [facility]U [facility]U [id number] [id number] [place] 00:00:00 00:00:00 [id number] [facility] 2022-10-19 2022-10-19 Jens [facility] [place] - [id number] H erlin 00:00:00 00:00:00 Deejay Diaz: [address], [place] [address] , Ph. 2022-10-15 2022-10-15 Outpatient Goldfarb_D [facility] U [id number] [id number] [place] 00:00:00 00:00:00 [id number] [facility] 2022-09-18 2022-09-18 Outpatient Goldfarb_D [facility] [id number] 79 [place] 00:00:00 00:00:00 83514 [facility] 2022-04-17 2022-04-17 Outpatient Goldfarb_D [facility] 4406 79 [place] 00:00:00 00:00:00 [id number] [facility] 2022-04-16 2022-04-16 Outpatient Goldfarb_D [facility] 4406 [place] 05:11:00 05:11:00 [id number] [facility] 2022-04-16 2022-04-16 Jens [facility] [place] - [id number] Charleen kern 00:00:00 00:00:00 Deejay Diaz Urolog y : [address] Jesus [facility] [address], [place] [address] , Ph. 2022-04-16 2022-04-16 Outpatient Samira, [facility] U [id number] 00:00:00 00:00:00 Jens Almanzar [id number] 2021-10-20 2021-10-20 Outpatient Goldfarb_D [facility] U [id number] [id number] [place] 03:39:00 03:39:00 [id number] [facility] 2021-10-20 2021-10-20 Outpatient Samira, [facility]U HMU [id number] 00:00:00 00:00:00 Jens Almanzar [id number] 2021-10-20 2021-10-20 Jens [facility] [place] - [id number] H erlin 00:00:00 00:00:00 Deejay Diaz Urolog y : [address], [place] [address] , Ph. 2021-09-03 2021-09-03 Outpatient Goldfarb_D [facility] U [id number] [id number] [place] 11:23:00 11:23:00 [id number] [facility] 2021-09-03 2021-09-03 Outpatient Samira, [facility]U U [id number] 00:00:00 00:00:00 Jens Almanzar [id number] 2021-09-03 2021-09-03 Jens [facility] [place] - [id number] H oukirsty 00:00:00 00:00:00 Deejay Diaz y : [address] [facility] [address], [place] [address] , Ph. 2021-06-13 2021-06-13 Outpatient Goldfarb_D [facility] U 4406 79 [place] 10:44:00 10:44:00 [id number] [facility] 2021-06-12 2021-06-12 Outpatient Goldfarb_D HMU [facility]U 4406 [facility]202 [place] 12:35:00 12:35:00 [id number] [facility] 2021-06-12 2021-06-12 Outpatient Samira, [facility]U U [id number] 00:00:00 00:00:00 Jens Almanzar [id number] 2021-06-12 2021-06-12 Jens [facility] [place] - [id number] H erlin 00:00:00 00:00:00 Deejay Diaz y : [address] Jesus [address] [facility], [place] [address] , Ph. 2021-05-15 2021-05-15 Outpatient Goldfarb_D [facility] U 4406 [facility]202 [place] 04:16:00 04:16:00 [id number] [facility] 2021-03-27 2021-03-27 Outpatient Goldfarb_D [facility] [id number] [id number] [place] 01:24:00 01:24:00 [id number] [facility] 2021-03-27 2021-03-27 Outpatient Samira, U [facility] [place] [id number] 00:00:00 00:00:00 Jens Almanzar [id number] 2021-03-27 2021-03-27 Jens [facility] [place] - [id number] [facility] 00:00:00 Yohan Deejay Granda Urolog y : [address] [place] [facility] [address], [place] [address] , Ph. 2021-01-25 2021-01-25 Outpatient FOSTERBEN, [facility] [id number] [place] 00:00:00 00:00:00 LUCA Malik Mo thodi 2021-01-04 2021-01-04 Outpatient [facility] [id number] 601 [place] 00:00:00 00:00:00 791 Method i 2020-11-07 2020-11-09 Outpatient SAMIRA, [facility] 021 [id number] [place] 00:00:00 00:00:00 JENS [address] 2020-11-04 2020-11-04 Outpatient SAMIRA, [facility] [id number] [place] 00:00:00 00:00:00 JENS [address] 2020-10-23 2020-10-23 Outpatient SAMIRA, [facility] [id number] [place] 00:00:00 00:00:00 JENS [address] 2020-10-23 2020-10-23 Outpatient SAMIRA, [facility] [id number] [place] 00:00:00 00:00:00 JENS [address] 2019-08-18 2019-08-18 [facility] 1.2.840.114 [id number] [facility] 11:22:19 23:59:00 Encounter Vega [facility] 350.1.13.10 ity of Surgical 4.2.7.2.686 [place] as Specialti [id number] Mo dical es 809 [facility] 2019-08-18 2019-08-18 Office Maggie RISAMANTHA [id number] [id number] Univers 11:14:10 11:31:47 Visit Twined 350.1.13.10 y of Surgical 4.2.7.2.686 [place] as Specialti [phone] Mo dical es 198 [facility] Results Test Description Test Time Test Comments Results Result Comments Source Urine culture 2023-06-29 20:56:00 Test Item Value Reference Range Interpretation Comme nts Urine culture (test code = 4887782) SEE COMMENT Bacteriuria screen negative. [facility] [Mass/volume] in Serum or Plasma by Detection limit <= 0.01 ng/[id number] 00:00:00 Test Item Value Reference Range Interpretation Comments Prostate specific Ag [Mass/volume] in <0.02 Serum or Plasma by Detection limit <= 0.01 ng/mL (test code = 78120-0) [place] [facility] UrologyTestosterone [Mass/volume] in Serum or [id number] 00:00:00 Test Item Value Reference Range Interpretation Comments Testosterone [Mass/volume] in Serum 511 NG/dL 250-827 or Plasma (test code = 2986-8) [facility] [id number] (COVID-19) RNA [Presence] in Respiratory specimen by KOSTAS with probe [id number] 22:26:59 Test Item Value Reference Range Interpretation Comments SARS-CoV-2 (COVID-19) RNA Not detected Not-Detected [Presence] in Respiratory specimen by KOSTAS with probe detection (test code = 82345-5) [facility] FOOT <3 VW [id number] 18:44:17[facility]
[2023-07-15 02:20] LABS: Specific Gravity 1.012 (1.005-1.030); Urine Bacteria None Seen /HPF (<20); Urine Bilirubin NEGATIVE (Negative); Urine Blood Trace (Negative); Urine Clarity Clear (Clear); Urine Color Dark-Yellow (Yellow); Urine Glucose NEGATIVE (Negative); Urine Protein NEGATIVE (Negative); Urine Urobilinogen Normal (Normal)
--- NOTE | 2023-07-15 02:25 | ER ---
Nurse's Notes [facility] Name: Poli Uribe II Age: 67 yrs Sex: Male : 1955 Arrival Date: 07/15/2023 Time: 01:13 Bed 10 Private MD: Juma Morris Diagnosis: Retention of urine, unspecified Presentation: 07/15 01:24 Chief complaint: Patient states: unable to urinate since yesterday afternoon recent kl prostate surgery with simpson removal x 2 days ago. Coronavirus screen: Vaccine status: Patient reports receiving the 2nd dose of the covid vaccine. Ebola Screen: Patient negative for fever greater than or equal to 101.5 degrees Fahrenheit, and additional compatible Ebola Virus Disease symptoms. Initial Sepsis Screen: Does the patient meet any 2 criteria? No. Patient's initial sepsis screen is negative. Does the patient have a suspected source of infection? No. Patient's initial sepsis screen is negative. Risk Assessment: Do you want to hurt yourself or someone else? Patient reports no desire to harm self or others. 01:24 Method Of Arrival: Ambulatory 01:24 Acuity: EVIN 4 kl Triage Assessment: 01:27 General: Appears uncomfortable, well groomed, well developed, Behavior is anxious. kl Pain: Complains of pain in pelvis Pain currently is 10 out of 10 on a pain scale. : Reports inability to void. Historical: - Allergies: 01:27 No Known Allergies; kl - PMHx: 01:27 Hypertensive disorder; prostate cancer; kl - PSHx: 01:27 prostate; kl - Immunization history:: Adult Immunizations not immunized. - Social history:: Smoking status: Patient denies any tobacco usage or history of. Screenin:06 [facility] ED Fall Risk Assessment (Adult) History of falling in the last 3 months, kl including since admission No falls in past 3 months (0 pts) Confusion or Disorientation No (0 pts) Intoxicated or Sedated No (0 pts) Impaired Gait No (0 pts) Mobility Assist Device Used No (0 pt) Altered Elimination No (0 pt) Score/Fall Risk Level 0 - 2 = Low Risk Oriented to surroundings, Maintained a safe environment. Abuse screen: Denies threats or abuse. Nutritional screening: No deficits noted. Tuberculosis screening: No symptoms or risk factors identified. Assessment: 02:06 Reassessment: Patient appears in no apparent distress at this time. Patient states kl feeling better. Patient states symptoms have improved. 02:54 Reassessment: Patient appears in no apparent distress at this time. simpson patent clear kl yellow urine continues to drain Patient states feeling better. Vital Signs: 01:24 BP 176 / 88; Pulse 82; Resp 16; Temp 98.4(TE); Pulse Ox 99% on R/A; Weight 83.91 kg; kl Height 5 ft. 11 in. ; Pain 10/10; 02:55 BP 170 / 82; Pulse 62; Resp 18; Pulse Ox 99% on R/A; kl 01:24 Body Mass Index 25.80 (83.91 kg, 180.34 cm) kl 01:24 Pain Scale: Adult kl ED Course: 01:16 Patient arrived in ED. mr 01:16 Juma Morris MD is Private Physician. mr 01:18 Almita Lunsford FNP-C is [facility]. kb 01:18 Devon Aiken MD is Attending Physician. kb 01:27 Triage completed. kl 02:05 Urinalysis w/ reflexes Sent. kl 02:06 Simpson cath inserted, using sterile technique, 14 Fr., by ak, balloon inflated, to kl gravity drainage, urine specimen collected. returned clear yellow urine. Patient tolerated well. 02:07 Patient has correct armband on for positive identification. Bed in low position. Call kl light in reach. Side rails up X2. Provided Education on: simpson care. 03:32 No provider procedures requiring assistance completed. Patient did not have IV access kl during this emergency room visit. 03:32 leg bag applied. kl Administered Medications: No medications were administered Medication: 02:06 VIS not applicable for this client. kl Output: 03:31 Urine: 1300ml (Simpson); Total: 1300ml. kl Outcome: 02:24 Discharge ordered by . kb 03:31 Discharged to home ambulatory. kl 03:31 Condition: improved 03:31 Discharge instructions given to patient, Instructed on discharge instructions, follow up and referral plans. Demonstrated understanding of instructions, follow-up care, simpson care 03:32 Patient left the ED. kl Signatures: Almita Lunsford FNP-C FNP-Ckb Lewis, Kimberly, RN RN Karely Akbar mr
--- NOTE | 2023-07-15 02:25 | EDPHYS ---
Physician Documentation [facility] Name: Poli Uribe II Age: 67 yrs Sex: Male : 1955 Arrival Date: 07/15/2023 Time: 01:13 Bed 10 Private MD: Juma Morris ED Physician Devon Aiken HPI: 07/15 01:32 This 67 yrs old Male presents to ER via Ambulatory with complaints of Urinary Problem. kb 01:32 The patient presents with urinary symptoms, retention. Onset: The symptoms/episode kb began/occurred today. Modifying factors: The symptoms are alleviated by nothing, the symptoms are aggravated by nothing. Associated signs and symptoms: The patient has no apparent associated signs or symptoms. Severity of symptoms: At their worst the symptoms were moderate, in the emergency department the symptoms are unchanged. The patient has not experienced similar symptoms in the past. The patient has been recently seen by a physician:. Pt reports he had a procedure at [facility] on Wednesday, had simpson removed on Wednesday and sent home. States he was having some urinary retention after simpson removal, but they said he was urinating enough that he didn't need the simpson put back in prior to discharge. Pt reports urologist said he may need a simpson put back in for a few days. States he woke up with the urge to urinate, but has been unable. States his bladder feels full and he is unable to urinate more than a few drops. . Historical: - Allergies: 01:27 No Known Allergies; kl - PMHx: :27 Hypertensive disorder; prostate cancer; kl - PSHx: 01:27 prostate; kl - Immunization history:: Adult Immunizations not immunized. - Social history:: Smoking status: Patient denies any tobacco usage or history of. ROS: 01:29 Constitutional: Negative for fever, chills, and weight loss. kb :29 : Positive for difficulty urinating. 01:29 All other systems are negative. Exam: :29 Constitutional: This is a well developed, well nourished patient who is awake, alert, kb and in no acute distress. Head/Face: Normocephalic, atraumatic. ENT: Moist Mucous membranes Respiratory: Respirations even and unlabored. No increased work of breathing. Talking in full sentences Skin: Warm, dry with normal turgor. Normal color. MS/ Extremity: Pulses equal, no cyanosis. Neurovascular intact. Full, normal range of motion. Neuro: Awake and alert, GCS 15, oriented to person, place, time, and situation. Moves all extremities. Normal gait. Vital Signs: 01:24 BP 176 / 88; Pulse 82; Resp 16; Temp 98.4(TE); Pulse Ox 99% on R/A; Weight 83.91 kg; kl Height 5 ft. 11 in. ; Pain 10/10; 02:55 BP 170 / 82; Pulse 62; Resp 18; Pulse Ox 99% on R/A; kl 01:24 Body Mass Index 25.80 (83.91 kg, 180.34 cm) kl 01:24 Pain Scale: Adult kl MDM: 01:18 Patient medically screened. kb 01:29 Differential diagnosis: UTI, urinary retention. Data reviewed: vital signs, nurses kb notes. 01:29 Test considered but Not performed: CT: ct scan considered, but pt reports urologist emily said urinary retention was a possibility and he would need a simpson for a few days. Will place simpson, send pt home with simpson and he will follow up with urologist. 02:15 Counseling: I had a detailed discussion with the patient and/or guardian regarding the kb historical points, exam findings, and any diagnostic results supporting the discharge/admit diagnosis, lab results, the need for outpatient follow up, a urologist, to return to the emergency department if symptoms worsen or persist or if there are any questions or concerns that arise at home. ED course: Pt feeling better after simpson placement. 07/15 01:23 Order name: Urinalysis w/ reflexes; Complete Time: 02:22 kb 07/15 01:23 Order name: Simpson; Complete Time: 02:05 kb Administered Medications: No medications were administered Disposition: 04:01 Co-signature as Attending Physician, Devon Aiken MD I agree with the assessment and kdr plan of care. Disposition Summary: 07/15/23 02:24 Discharge Ordered Location: Home kb Condition: Stable kb Diagnosis - Retention of urine, unspecified kb Followup: kb - With: Emergency Department - When: As needed - Reason: Worsening of condition Followup: kb - With: Private Physician - When: 2 - 3 days - Reason: Recheck today's complaints, Continuance of care, Re-evaluation by your physician Discharge Instructions: - Discharge Summary Sheet kb - Acute Urinary Retention, Male, [id number] kb - Indwelling Urinary Catheter Care, Adult, [id number] kb Forms: - Medication Reconciliation Form kb - Thank You Letter kb - Antibiotic Education kb - Prescription Opioid Use kb - Patient Portal Instructions kb - Leadership Thank You Letter kb Signatures: Dispatcher [employer] Almita Fierro, ISABELA-C ISABELA-Jennifer Nogueira RN RN Devon Metcalf MD MD kdr
[2023-07-15 04:01] VITALS: TEMP 98.4; O2SAT 99
[2023-07-15 04:08] VITALS: BP 170/82
== END 2023-07-15 03:32 | disposition home or self-care (01) ==
LOC: ER 01:13
DX: R33.9 Retention of urine, unspecified (principal); I10 Essential (primary) hypertension; Z85.46 Personal history of malignant neoplasm of prostate
CPT/HCPCS: 51702; 81001; 99284